=== PATIENT | male | born 1965 | race Caucasian/White ===

== ENCOUNTER 2019-02-18 12:30 | Outpatient (CLI) | payer OTHER, MEDICARE, SELFPAY ==
[2019-02-18 13:44] LABS: Basophils % 0.4 %; Eosinophils % 0.3 %; Hemoglobin 15.7 g/dL (11.7-16.6); Lymphocytes # 1.4 10^3/uL (0.8-4.8); Lymphocytes % 17.7 %; Mean Corpuscular HGB Conc 34.1 g/dL (30.0-36.0); Mean Corpuscular Hemoglobin 34.5 pg (28.0-34.0); Mean Corpuscular Volume 101.1 fL (80-94); Mean Platelet Volume 9.7 fL (7.4-10.4); Monocytes # 0.6 10^3/uL (0.2-0.9); Monocytes % 7.4 %; Neutrophils # 5.7 10^3/uL (1.8-7.7); Neutrophils % 72.4 %; Nucleated Red Blood Cells % 0 %; Platelet Count 413 10^3/cmm (130-400); Red Blood Count 4.55 10^6/uL (4.1-5.3); Red Cell Distribution Width 15.1 % (12.1-15.1); White Blood Count 7.9 10^3/uL (4.0-10.0)
[2019-02-18 13:54] LABS: Alanine Aminotransferase 55 U/L (0-41); Albumin Level 4.7 g/dL (3.5-5.2); Alkaline Phosphatase 79 IU/L (40-130); Anion Gap 16.3 (5-19); Aspartate Amino Transferase 49 U/L (0-40); Blood Urea Nitrogen 20 mg/dL (6-20); Calcium 10.4 mg/Dl (8.6-10.0); Carbon Dioxide 22 mmol/L (22-29); Chloride 105 mmol/L (98-107); Glomerular Filtration Rate 57.5 mL/min (90-130); Glucose 169 mg/dL (74-109); Lactate Dehydrogenase 241 U/L (135-225); Potassium 4.3 mmol/L (3.5-5.1); Sodium 139 mmol/L (136-145); Total Bilirubin 0.6 mg/dL (0.15-1.2); Total Protein 6.7 g/dL (6.6-8.7)
== END 2019-02-18 12:31 | disposition home or self-care (01) ==
LOC: LAB 12:37
PROVIDERS: Visit Provider Internal Medicine Medical Oncology
DX: Z94.84 Stem cells transplant status (principal); R94.5 Abnormal results of liver function studies; D46.9 Myelodysplastic syndrome, unspecified
CPT/HCPCS: 80053; 83615; 85025

== ENCOUNTER 2019-04-12 09:03 | Outpatient (CLI) | payer OTHER, MEDICARE, SELFPAY ==
[2019-04-12 09:28] LABS: Basophils % 0.5 %; Eosinophils # 0.1 10^3/uL (0.0-0.8); Hematocrit 45.8 % (42.0-52.0); Hemoglobin 15.6 g/dL (11.7-16.6); Lymphocytes % 34.8 %; Mean Corpuscular HGB Conc 34.1 g/dL (30.0-36.0); Mean Corpuscular Hemoglobin 35.3 pg (28.0-34.0); Mean Corpuscular Volume 103.6 fL (80-94); Mean Platelet Volume 9.3 fL (7.4-10.4); Monocytes # 1.1 10^3/uL (0.2-0.9); Monocytes % 12.5 %; Neutrophils # 4.3 10^3/uL (1.8-7.7); Nucleated Red Blood Cells % 0 %; Platelet Count 456 10^3/cmm (130-400); Red Blood Count 4.42 10^6/uL (4.1-5.3); Red Cell Distribution Width 14.9 % (12.1-15.1); White Blood Count 8.7 10^3/uL (4.0-10.0)
[2019-04-12 09:48] LABS: Alanine Aminotransferase 56 U/L (0-41); Albumin Level 3.6 g/dL (3.5-5.2); Alkaline Phosphatase 99 IU/L (40-130); Aspartate Amino Transferase 48 U/L (0-40); Blood Urea Nitrogen 19 mg/dL (6-20); Calcium 10.2 mg/dL (8.5-10.5); Carbon Dioxide 25 mmol/L (22-29); Chloride 103 mmol/L (98-107); Globulin 3.4 g/dL (1.3-4.6); Glomerular Filtration Rate 57.5 mL/min (90-130); Glucose 118 mg/dL (65-115); Lactate Dehydrogenase 208 U/L (135-225); Sodium 139 mmol/L (136-145); Total Bilirubin 0.4 mg/dL (0.15-1.2)
== END 2019-04-12 09:04 | disposition home or self-care (01) ==
LOC: LAB 11:28 → ONCMED 11:32
PROVIDERS: PCP Nurse Practitioner Family; Visit Provider Internal Medicine Hematology & Oncology
DX: D46.9 Myelodysplastic syndrome, unspecified (principal)
CPT/HCPCS: 36415; 80053; 80197; 83615; 85025

== ENCOUNTER 2019-06-17 08:17 | Outpatient (CLI) | payer OTHER, MEDICARE, SELFPAY ==
[2019-06-17 09:05] LABS: Basophils # 0.1 10^3/uL (0.0-0.1); Basophils % 0.8 %; Eosinophils # 0.3 10^3/uL (0.0-0.8); Eosinophils % 4.1 %; Hematocrit 46.4 % (42.0-52.0); Hemoglobin 15.7 g/dL (11.7-16.6); Lymphocytes # 2.2 10^3/uL (0.8-4.8); Lymphocytes % 35.5 %; Mean Corpuscular HGB Conc 33.8 g/dL (30.0-36.0); Mean Corpuscular Hemoglobin 34.4 pg (28.0-34.0); Mean Corpuscular Volume 101.5 fL (80-94); Mean Platelet Volume 9.6 fL (7.4-10.4); Monocytes % 15.8 %; Neutrophils # 2.7 10^3/uL (1.8-7.7); Neutrophils % 43.3 %; Nucleated Red Blood Cells % 0 %; Platelet Count 418 10^3/cmm (130-400); Red Blood Count 4.57 10^6/uL (4.1-5.3); Red Cell Distribution Width 15.2 % (12.1-15.1); White Blood Count 6.3 10^3/uL (4.0-10.0)
[2019-06-17 09:25] LABS: Alanine Aminotransferase 56 U/L (0-41); Albumin Level 4.1 g/dL (3.5-5.2); Alkaline Phosphatase 87 IU/L (40-130); Aspartate Amino Transferase 58 U/L (0-40); Blood Urea Nitrogen 20 mg/dL (6-20); Calcium 9.9 mg/dL (8.5-10.5); Carbon Dioxide 22 mmol/L (22-29); Chloride 103 mmol/L (98-107); Globulin 2.9 g/dL (1.3-4.6); Glomerular Filtration Rate 57.5 mL/min (90-130); Glucose 107 mg/dL (65-115); Osmolality Calculated 281 mOsm/kg (285-295); Sodium 137 mmol/L (136-145); Total Bilirubin 0.5 mg/dL (0.15-1.2)
== END 2019-06-17 08:18 | disposition home or self-care (01) ==
PROVIDERS: PCP Nurse Practitioner Family; Visit Provider Internal Medicine Medical Oncology
DX: D46.9 Myelodysplastic syndrome, unspecified (principal); R94.5 Abnormal results of liver function studies; Z94.84 Stem cells transplant status
CPT/HCPCS: 36415; 80053; 85025

== ENCOUNTER 2020-01-18 14:42 | Emergency (ER) | payer OTHER, MEDICARE, SELFPAY ==
[2020-01-18 14:47] VITALS: BP 147/99; PULSE 74; RESP 16; TEMP 36.3; O2SAT 97; BMI 27.8
[2020-01-18 15:30] LABS: Basophils % 0.4 %; Eosinophils % 0.2 %; Hematocrit 50.4 % (42.0-52.0); Hemoglobin 17.6 g/dL (11.7-16.6); Lymphocytes # 1.9 10^3/uL (0.8-4.8); Lymphocytes % 16.8 %; Mean Corpuscular HGB Conc 34.9 g/dL (30.0-36.0); Mean Corpuscular Hemoglobin 34.4 pg (28.0-34.0); Mean Corpuscular Volume 98.6 fL (80-94); Mean Platelet Volume 9.1 fL (7.4-10.4); Monocytes % 8.6 %; Neutrophils # 8.19 10^3/uL (1.8-7.7); Neutrophils % 73.4 %; Nucleated Red Blood Cells % 0 %; Platelet Count 506 10^3/cmm (130-400); Red Blood Count 5.11 10^6/uL (4.1-5.3); Red Cell Distribution Width 14.3 % (12.1-15.1); White Blood Count 11.2 10^3/uL (4.0-10.0)
[2020-01-18 16:07] LABS: Alanine Aminotransferase 50 U/L (0-41); Albumin Level 4.4 g/dL (3.5-5.2); Alkaline Phosphatase 87 IU/L (40-130); Anion Gap 13.4 (5-19); Aspartate Amino Transferase 42 U/L (0-40); Blood Urea Nitrogen 17 mg/dL (6-20); Calcium 10.4 mg/dL (8.5-10.5); Carbon Dioxide 26 mmol/L (22-29); Chloride 103 mmol/L (98-107); Globulin 2.9 g/dL (1.3-4.6); Glomerular Filtration Rate 62.9 mL/min (90-130); Glucose 114 mg/dL (65-115); Lipase 33 U/L (13-60); Osmolality Calculated 288 mOsm/kg (285-295); Potassium 4.4 mmol/L (3.5-5.1); Sodium 138 mmol/L (136-145); Total Bilirubin 0.4 mg/dL (0.15-1.2); Total Protein 7.3 g/dL (6.6-8.7)
[2020-01-18] MEDS: sodium chloride 0.9% 1,000 ML 999 ML IV (16:10)
--- NOTE | 2020-01-18 16:27 | CT_ITS ---
WS: [id number] CT ABDOMEN PELVIS TECHNIQUE: Contrast-enhanced CT of the abdomen and pelvis with coronal and sagittal reformatted image s. CLINICAL INFORMATION: abd pain COMPARISON: None. DLP: 1331.[address] scans at [facility] use at least one of these dose optimization techniques: automat ed exposure control; mA and/or kV adjustment per patient size (includes targeted exams where dose is matched to clinical indication); or iterative reconstruction. FINDINGS: Mild diffuse fatty infiltration the liver. Cholelithiasis. No gallbladder wall thickening or perichol ecystic fluid. Gallbladder is slightly distended. Small calculi at the gallbladder neck and extending into the cystic duct. This can be further evaluated with ultrasound. A few prominent small bowel loops in the right midabdomen. No evidence of high-grade obstruction. Rec ommend correlation for small bowel enteritis. Adrenal glands are normal. Normal renal parenchymal enhancement. No hydronephrosis. A few nonobstruct ing subcentimeter renal parenchymal and calyceal tip calculi. Normal GE junction. Small splenules in the splenectomy bed. Postoperative changes prior splenectomy. Lung bases are well aerated. Sigmoid di verticulosis. No evidence of acute diverticulitis. No periaortic lymphadenopathy. No inguinal lymphad enopathy. Postoperative changes pedicle screw fixation L5-S1. CT/CT abdomen pelvis w con* [id number] IMPRESSION: 1. Fluid distended gallbladder with small gallstones in the gallbladder neck e xtending into the cystic duct. No gallbladder wall thickening or pericholecysti c fluid. This can be further evaluated with ultrasound. 2. A few prominent small bowel loops in the right midabdomen. No evidence of h igh-grade obstruction. Recommend correlation for small bowel enteritis. 3. Mild diffuse fatty infiltration of the liver. 4. No hydronephrosis in either kidney. 5. Prior splenectomy. 6. Sigmoid diverticuli. No evidence of acute diverticulitis 7. Prior postoperative changes pedicle screw fixation L5-S1. Message left for Gildardo Dave MD at 01/18/2020 4:53 PM.
--- NOTE | 2020-01-18 16:33 | ED_ITS ---
HPI - Abdominal Pain General: Chief Complaint: Abdominal Pain Stated Complaint: RLQ ABD PAIN Time Seen by Provider: 01/18/20 16:26 Source: patient Mode of arrival: ambulatory Limitations: no limitations History of Present Illness: HPI narrative: 55-year-old male who states he did have a suprapubic and right lower quadrant pain starting at this morning. He states pain is worsened throughout the day is now an 8 out of 10. 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 He denies any fever. He has had nausea no vomiting. He has had regular bowels. MD elicited complaint: abdominal pain Onset (ago): hour(s) Location: Periumbilical and RLQ Severity: severe Quality: stabbing Associated Symptoms: Denies chills, diarrhea, dysuria, fever(s), nausea and vomiting Review of Systems Const: Denies: fever(s), chills, body aches or change in appetite Eyes: Denies: blurry vision or eye discomfort ENMT: Denies: throat pain or dental pain Card: Denies: chest pain Resp: Denies: dyspnea GI: Reports: abdominal pain; Denies: nausea, vomiting or diarrhea : Denies: dysuria Musc: Denies: neck pain or back pain Skin/Breast: Denies: rash Neuro: Denies: headache(s) Psych: Denies: depression Douglas/Lymph: Denies: easy bruising All/Imm: Denies: urticaria Physical Exam Const: COMMON NORMALS: no acute distress, patient oriented x3 and healthy appearing HENMT: COMMON NORMALS: normocephalic and atraumatic HEAD & SCALP: normocephalic and atraumatic Eye: COMMON NORMALS: Equal, round and reactive pupils present and EOMs intact bilaterally PUPIL: Yes Equal, round and reactive pupils present Neck/C-Spine: COMMON NORMALS: full ROM and supple Chest: COMMONS NORMALS: normal inspection of the chest and normal palpation of entire chest wall Resp: COMMON NORMALS: normal respiratory effort, No retractions, No use of accessory muscles and clear to auscultation bilaterally AUSCULTATION: clear to auscultation bilaterally Cardio: COMMON NORMALS: regular rate, regular rhythm and No murmurs present (Cardio) RATE: regular rate RHYTHM: regular rhythm GI: COMMON NORMALS: Normal to inspection, nondistended, normoactive bowel sounds present, Soft to palpation and no masses PALPATION: Yes Soft to palpation and Yes Tenderness to palpation present (GI) Details: RLQ Extremity: COMMON NORMALS: normal to inspection and full ROM Neuro: COMMON NORMALS: patient oriented x3, moves all extremities and no focal motor deficits Psych: COMMON NORMALS: mental status grossly normal, Normal thought process present and cooperative THOUGHT PROCESS: Normal thought process present Skin: COMMON NORMALS: no rashes or lesions noted and no wounds GENERAL SKIN EXAM: no rashes or lesions noted Course Vital Signs: Vital signs: Vital Signs Temperature 97.3 F L 01/18/20 14:47 Pulse Rate 74 01/18/20 14:47 Respiratory Rate 18 01/18/20 16:48 Blood Pressure 147/99 01/18/20 14:47 Pulse Oximetry 97 01/18/20 14:47 MDM - Abdominal Pain MDM Narrative: Medical decision making narrative: Patient Dennis presents with abdominal pain likely due to gallstones. His pain is much improved he has no tenderness at discharge his common bile duct on ultrasound was not elevated and he has no signs of choledocholithiasis or choledocho cystitis. Patient's white count and bilirubin and liver enzymes here are normal. We will start him on pain meds and he is to follow-up with Dr. Knowles of surgery outpatient. He is return if worsening. He understands and agrees to plan. He has no signs of ischemic bowel. Lab Data: Labs: Lab Results 01/18/20 01/18/20 Range/Units 15:16 15:16 WBC 11.2 H (4.0-10.0) 10^3/ uL RBC 5.11 (4.1-5.3) 10^6/u L Hgb 17.6 H (11.7-16.6) g/dL Hct 50.4 (42.0-52.0) % MCV 98.6 H (80-94) fL MCH 34.4 H (28.0-34.0) pg MCHC 34.9 (30.0-36.0) g/dL RDW 14.3 (12.1-15.1) % Plt Count 506 H (130-400) 10^3/c mm MPV 9.1 (7.4-10.4) fL Neut % (Auto) 73.4 % Lymph % (Auto) 16.8 % Sierra % (Auto) 8.6 % Eos % (Auto) 0.2 % Baso % (Auto) 0.4 % Neut # (Auto) 8.19 H (1.8-7.7) 10^3/u L Lymph # (Auto) 1.9 (0.8-4.8) 10^3/u L Sierra # (Auto) 1.0 H (0.2-0.9) 10^3/u L Eos # (Auto) 0.0 (0.0-0.8) 10^3/u L Baso # (Auto) 0.0 (0.0-0.1) 10^3/u L Nucleated RBC % (a uto) 0 % Nucleated RBCs # 0.0 /100WBC Sodium 138 (136-145) mmol/L Potassium 4.4 (3.5-5.1) mmol/L Chloride 103 (98-107) mmol/L Carbon Dioxide 26 (22-29) mmol/L Anion Gap 13.4 (5-19) BUN 17 (6-20) mg/dL Creatinine 1.2 (0.7-1.2) mg/dL GFR Calculation 62.9 L (90-130) mL/min Glucose 114 (65-115) mg/dL Calculated Osmolal ity 288 (285-295) mOsm/k g Calcium 10.4 (8.5-10.5) mg/dL Total Bilirubin 0.4 (0.15-1.2) mg/dL AST 42 H (0-40) U/L ALT 50 H (0-41) U/L Alkaline Phosphata se 87 (40-130) IU/L Total Protein 7.3 (6.6-8.7) g/dL Albumin 4.4 (3.5-5.2) g/dL Globulin 2.9 (1.3-4.6) g/dL Lipase 33 (13-60) U/L Imaging Data ^: CT Abd/Pel: Radiologist's impression: [facility] [address] [place] [address] CT Scan Report Signed Patient: Dennis Singh Unit #: [id number] : 1965 626 Age/Sex: 55 / M ADM Date: 01/18/20 Loc: ER Room/Bed: Attending Dr: Ordering Provider/Ordering MD: Gildardo Dave MD Date of Service: 01/18/20 Procedure(s): CT abdomen pelvis w con* [id number] Accession Number(s): [id number] Report Number: [id number] WS: [id number] CT ABDOMEN PELVIS TECHNIQUE: Contrast-enhanced CT of the abdomen and pelvis with coronal and sagittal reformatted images. CLINICAL INFORMATION: abd pain COMPARISON: None. DLP: 1331.[address] scans at [facility] use at least one of these dose optimization techniques: automated exposure control; mA and/or kV adjustment per patient size (includes targeted exams where dose is matched to clinical indication); or iterative reconstruction. FINDINGS: Mild diffuse fatty infiltration the liver. Cholelithiasis. No gallbladder wall thickening or pericholecystic fluid. Gallbladder is slightly distended. Small calculi at the gallbladder neck and extending into the cystic duct. This can be further evaluated with ultrasound. A few prominent small bowel loops in the right midabdomen. No evidence of high- grade obstruction. Recommend correlation for small bowel enteritis. Adrenal glands are normal. Normal renal parenchymal enhancement. No hydronephrosis. A few nonobstructing subcentimeter renal parenchymal and calyceal tip calculi. Normal GE junction. Small splenules in the splenectomy bed. Postoperative changes prior splenectomy. Lung bases are well aerated. Sigmoid diverticulosis. No evidence of acute diverticulitis. No periaortic lymphadenopathy. No inguinal lymphadenopathy. Postoperative changes pedicle screw fixation L5-S1. CT/CT abdomen pelvis w con* [id number] IMPRESSION: 1. Fluid distended gallbladder with small gallstones in the gallbladder neck extending into the cystic duct. No gallbladder wall thickening or pericholecystic fluid. This can be further evaluated with ultrasound. 2. A few prominent small bowel loops in the right midabdomen. No evidence of high-grade obstruction. Recommend correlation for small bowel enteritis. 3. Mild diffuse fatty infiltration of the liver. 4. No hydronephrosis in either kidney. 5. Prior splenectomy. 6. Sigmoid diverticuli. No evidence of acute diverticulitis 7. Prior postoperative changes pedicle screw fixation L5-S1. Discharge Plan Discharge Patient Disposition: Home Clinical Impression: Gallstones Abdominal pain Qualifiers: Abdominal location: right upper quadrant Qualified Code(s): R10.11 - Right upper quadrant pain Condition: Stable Prescriptions: [place] 5-325 mg tablet 1 tab PO Q6H PRN (Reason: pain) Qty: 14 RF: 0 ondansetron 4 mg tablet,disintegrating 4 mg PO Q6H PRN (Reason: nausea and vomiting) Qty: 14 RF: 0 Augmentin 875-125 mg tablet 1 tab PO BID Qty: 14 RF: 0 No Action acyclovir 400 mg tablet 400 mg PO TID RF: 0 sulfamethoxazole-trimethoprim 800-160 mg tablet See Rx Instructions .ROUTE .COMPLEX RF: 0 pantoprazole 40 mg tablet,delayed release (DR/EC) 40 mg PO DAILY RF: 0 ursodiol 250 mg tablet 250 mg PO BID RF: 0 Claritin 10 mg Tablet 10 mg PO DAILY RF: 0 tacrolimus 0.5 mg capsule 0.5 mg PO DAILY RF: 0 Vitamin D3 25 mcg (1,000 unit) Capsule 25 mcg PO BID RF: 0 Fish Oil Capsule 1 cap PO BID RF: 0 Calcium Citrate + D 315 mg-5 mcg (200 unit) Tablet 1 tab PO BID RF: 0 Jakafi 10 mg tablet 10 mg PO BID RF: 0 Discharge Orders: Discharge ED (Routine); Ordered 01/18/20 Ordered By: Gildardo Dave Referrals: Stanley Knowles MD [Physician] - 1-3 days Gonzalez,GAIL Felton [Primary Care Provider] - Discharge Diet: Advance as tolerated Discharge Activity: Resume usual activity Patient Instructions: Biliary Colic (ED), Abdominal Pain (ED) Coding Level of Care Code ED Latex Spooler for Chg Fwd Exam Comprehensive
[2020-01-18] MEDS: iohexol 300 mg/mL 100 mL Btl IV (16:41)
[2020-01-18 16:48] VITALS: RESP 18
[2020-01-18] MEDS: morphine 4 mg/mL SDV 1 mL IVP (16:48)
[2020-01-18] MEDS: ondansetron 2 mg/ML SDV 2 mL 4 MG IVP (16:49)
--- NOTE | 2020-01-18 17:01 | USR_ITS ---
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 This was sudden on set of severe stabbing pain. Npo six hours, per patient. ; Additional info: See CT TECHNIQUE: Imaging protocol: US abdomen. Real time ultrasound with image documentation. Limited exam focused on the right upper quadrant. COMPARISON: CT abdomen pelvis w con* [id number] 01/18/2020 4:30 PM FINDINGS: Liver: The liver is of normal echogenicity measuring 15.1 cm. Gallbladder: Mildly distended gallbladder measuring 11.7 cm in length. The small calcified stones in the gallbladder neck on the CT scan, are not visible on the ultrasound. The gallbladder wall thickness measures 5.0 mm. Common bile duct: The common bile duct measures 5.4 mm. Pancreas: The pancreas is obscured. Right kidney: Normal. No mass. No hydronephrosis. US/US gall bladder [id number] IMPRESSION: 1. Mild gallbladder wall thickening with calcified gallstones in the gallbladder neck on the CT study (not visible on this study). This is suspicious for acute cholecystitis.
[2020-01-18] MEDS: HYDROcodone-acetaminophen 7.5-325 mg Tablet 1 TAB PO (17:46)
[2020-01-18 17:56] VITALS: BP 142/96; PULSE 71; RESP 17; O2SAT 98
--- NOTE | 2020-01-19 09:57 | DCPLANNER ---
writing manager had message to schedule a follow up appointment for patient with Dr. Knowles for general surgery. Patient has [facility] insurance, Dr. Davila office does not accept VA insurance at this time. writing manager will refer patient patient to [facility] General Surgery either Dr. Angelo to Dr. Dalton. Patient has [facility] insurance, so corrections caseworker will email the [facility] with [facility] to have a consult placed. writing manager emailed [facility] with the referral to their clinic, patients information will be printed and reviewed, clinic will call patient with appointment information.
--- NOTE | 2020-01-26 12:45 | DCPLANNER ---
Patient has a follow up appointment scheduled for Thursday, January 30, 2020 at 10:[address] Angelo. Clinic will call patient with appointment information.
--- NOTE | 2020-02-03 08:17 | DCPLANNER ---
Patient had a follow up appointment scheduled for 01.30.20 with general surgery - patient did attend appointment.
== END 2020-01-18 17:57 | disposition home or self-care (01) ==
PROVIDERS: Emergency Provider Emergency Medicine; PCP Nurse Practitioner Family
DX: K80.80 Other cholelithiasis without obstruction (principal)
CPT/HCPCS: 12345; 74177; 76705; 80053; 83690; 85025; 96361; 96374; 96375; 99282; 99283; J2270; J2405; J7030; Q9967

== ENCOUNTER → 2020-01-31 10:23 | Outpatient (BNVA) | payer MEDICARE, SELFPAY | PROVIDERS: PCP Nurse Practitioner Family; Visit Provider Surgery | DX: K80.20 Calculus of gallbladder without cholecystitis without obstruction (principal) | CPT/HCPCS: 87635 ==

== ENCOUNTER 2020-02-06 05:57 | Day surgery (SDC) | payer OTHER, MEDICARE, SELFPAY ==
[2020-02-03 09:07] VITALS: BMI 27.8
[2020-02-06] VITALS (8 sets, daily range): BP systolic 107–129; BP diastolic 68–97; PULSE 52–86; RESP 14–20; TEMP 36.4–36.7; O2SAT 93–98
[2020-02-06] MEDS: sodium chloride 0.9% 1,000 ML 30 ML IV (06:25)
--- NOTE | 2020-02-06 06:43 | ANES.PREANE2 ---
Pre-Anesthetic Assessment Pre-Anesthetic Assessment: Height/Weight: Height 1.8 m Weight 90.718 kg Temp Pulse Resp BP Pulse Ox 97.9 F 86 18 129/97 93 02/06/20 06:14 02/06/20 06:14 02/06/20 06:14 02/06/20 06:14 02/06/20 06:14 Preop Diagnosis: Cholelithiasis Proposed Procedure: Operation Date: 02/06/20 07:40 Proposed Procedures p Laparoscopic poss Open Cholecystectomy 31863 K80.20(Not Applicable) - Jean Carlos Angelo MD Was Beta Zully taken within 24 hours: N/A Last intake: Intake Last Liquid Date 02/05/20 Last Liquid Time 19:30 Last Solid Date 02/05/20 Last Solid Time 19:30 Social: Social History: Tobacco and No alcohol Exam: Pre-Anes Outpt Exam: alert, oriented x 3, clear to auscultation bilaterally and regular rate & rhythm Airway: Submandibular: WNL Cervical ROM: WNL MP: 2 Dentition: Full Additional comments: Poor dentition Pulmonary: Pulmonary: COPD CV/HEM: CV/HEM: None reported : : None reported Hepatic: Hepatic: None reported GI: GI: GERD Metabolic: Metabolic: None reported Musc/skel: Musc/skel: None reported Neuropsych: Neuropsych: None reported Anesthetic Plan: ASA status: 3 Anesthesia: General Risk of > 500 ml blood loss (7ml/kg in children): No Meds/Allergies Current Medications: Current Medications Generic Name Dose Route Start Last Admin Trade Name Freq PRN Reason Stop Dose Admin Sodium Chloride 1,000 mls @ 30 ml s/hr 02/06/20 06:15 02/06/20 06:25 Sodium Chloride 0.9% IV 02/07/20 06:14 30 mls/hr .Q24H RAGHU Administration PFSH Anesthesia PFSH: Medical History Gallstones GERD (gastroesophageal reflux disease) Herpes simplex 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 stem cell transplant Surgical History H/O circumcision H/O colonoscopy 2016 H/O esophagogastroduodenoscopy 2017 H/O splenectomy age 2 days old H/O stem cell transplant History of back surgery x 2 Family History Other Cancer Diabetes Hypertension Denies family history of CAD (coronary artery disease) Anesthesia complication Bleeding disorder Social History Smoking and tobacco status: never smoked Alcohol intake: current Alcohol intake frequency: holidays/special occasions only Household members: significant other Marital status: Single Current occupational status: disabled History of recent travel: No Data Anesthesia Cardiac Studies: No Data to Display
--- NOTE | 2020-02-06 06:57 | W.PM.OPSUD ---
Surgery/Procedure H&P Update DATE OF PROCEDURE: February 06, 2020 DATE H&P PERFORMED: 01/30/20 H&P UPDATE INFORMATION: I have reviewed H&P completed within last 30 days, I have examined patient prior to procedure and No changes to prior documentation PREOP DIAGNOSIS: Cholelithiasis PLANNED PROCEDURE: Operation Date: 02/06/20 07:40 Proposed Procedures p Laparoscopic poss Open Cholecystectomy 30349 K80.20(Not Applicable) - Jean Carlos Angelo MD
[2020-02-06] MEDS: HYDROcodone-acetaminophen 5-325 mg Tablet 1 TAB PO (09:48)
--- NOTE | 2020-02-06 12:05 | ANE.PACU2 ---
Inpatient post-anesthesia follow up: Airway intact: Yes Vital signs: Temperature 98 F Pulse Rate 57 Respiratory Rate 16 Blood Pressure 117/68 Pulse Oximetry 94 Oxygen Delivery Me thod Room Air Oxygen Flow Rate 6 Fraction of Inspir ed Oxygen Hydration adequate: Yes Nausea and vomiting: No Pain level: 1 Mental status: Baseline
--- NOTE | 2020-02-06 12:46 | P.OP_ITS ---
Operative Report Date of procedure: February 06, 2020 Pre-op Diagnosis: Cholelithiasis Post-op diagnosis: same Procedure Done: Laparoscopic cholecystectomy Specimens removed/disposition: Gallbladder Surgeon: Jean Carlos Angelo Anesthesia: General Condition: stable Disposition: PACU Procedure: The patient was taken to the operating room and was intubated under general anesthesia. After the antibiotic had been administered, the abdomen was prepped and draped in a sterile manner. Using a #15 blade, a 1 centimeter incision was made in the left upper quadrant in the midclavicular line and using an open Gilda technique the peritoneal cavity was entered. A 10 millimeter port was placed and 15 millimeters of pneumoperitoneum was created. A 10 millimeter, 30 degrees scope was then introduced. Three 5 millimeter ports were placed in the epigastric, and the anterior axillary line two fingerbreadths below the costal margin on the right side under the direct visualization. There was small bowel loops adherent to the prior laparotomy scar in the midline which was divided using electrocautery and 5 mm port was placed in the umbilicus under direct visualization. The gallbladder was distended and decompressed using an aspiration needle. Ratcheted forceps were introduced into the lateral most port and was used to retract the fundus of the gallbladder cephalad and using forceps the infundibulum of the gallbladder was retracted laterally. Using L-hook cautery the peritoneum overlying the Calot's triangle was opened medially and laterally until the cystic duct and the cystic artery were skeletonized. Dissection was carried along the body of the gallbladder and after ensuring critical view of safety, 4 clips applied on the cystic duct and 3 clips applied on the cystic artery and cut leaving, 3 clips on the remaining portion of the d uct and 2 clips on the remaining portion of the artery. The rest of the gallbladder was dissected off the liver using L-hook cautery. There was no bleeding or bile leaking noted from the gallbladder fossa and the clips appeared to be in place. An EndoCatch bag was introduced to remove the gallbladder. All the ports were removed under direct visualization and there was no bleeding noted from the port sites. The fascia of the 1 cm port site was closed using rasqon-[id number] 0 Vicryl sutures and the subcutaneous tissue was approximated using 3-0 Vicryl sutures. The skin at all four ports were closed using 4-0 Monocryl and Dermabond. A total of 10 millimeters of 0.5% Marcaine was infiltrated around the port sites. The patient was stable throughout the procedure.
== END 2020-02-06 10:40 | disposition home or self-care (01) ==
PROVIDERS: PCP Nurse Practitioner Family; Visit Provider Surgery
PROC: 0FT44ZZ Resection of Gallbladder, Percutaneous Endoscopic Approach (ICD-10-PCS; CPT 47562; principal; 2020-02-06 07:40)
DX: K80.10 Calculus of gallbladder with chronic cholecystitis without obstruction (principal); J44.9 Chronic obstructive pulmonary disease, unspecified; K21.9 Gastro-esophageal reflux disease without esophagitis
CPT/HCPCS: 47562; 12345; 88304; J0131; J0690; J1100; J2370; J2405; J2704; J2710; J3010; J3490; J7030

== ENCOUNTER 2020-08-06 08:38 | Outpatient (CLI) | payer OTHER, MEDICARE, SELFPAY ==
[2020-08-06] MEDS: sodium chloride 0.9% 250 ML IV (10:41)
[2020-08-06 11:36] LABS: Basophils # 0.1 10^3/uL (0.0-0.1); Basophils % 0.7 %; Eosinophils % 0.2 %; Hematocrit 52.6 % (42.0-52.0); Hemoglobin 18.5 g/dL (11.7-16.6); Lymphocytes # 2.8 10^3/uL (0.8-4.8); Lymphocytes % 25.7 %; Mean Corpuscular HGB Conc 35.2 g/dL (30.0-36.0); Mean Corpuscular Hemoglobin 34.1 pg (28.0-34.0); Mean Corpuscular Volume 96.9 fL (80-94); Monocytes # 0.6 10^3/uL (0.2-0.9); Monocytes % 5.6 %; Neutrophils # 7.22 10^3/uL (1.8-7.7); Neutrophils % 67.1 %; Nucleated Red Blood Cells % 0 %; Platelet Count 127 10^3/cmm (130-400); Red Blood Count 5.43 10^6/uL (4.1-5.3); Red Cell Distribution Width 15.7 % (12.1-15.1); White Blood Count 10.8 10^3/uL (4.0-10.0)
[2020-08-06 12:25] LABS: Slide Review Slide Review Perform
--- NOTE | 2020-08-07 16:52 | ONC FU_ITS ---
Dr. Corral follow up note Patient: Dennis Singh Unit #: [id number]: 1965 Dicatated By: Ray Corral M.D.Date of Visit:Aug 06, 2020 Onc Med Follow-up/Prog Note History of Present Illness: Mr. Dennis Singh is a 55-year-old gentleman who was admitted to the hospital on 11/17/16 with episode of syncopal attacks. He was found to have severe anemia with hemoglobin of 4.9 and hematocrit of 14.3, and his white blood count was also low at 2.5 with a neutrophil of 24%, bands at 12%, and absolute Neutrophil Count about 900. Platelet count was 85,000. He was given 4 units of packed RBC during hospitalization and Was diagnosed with myelodysplastic syndrome with germline DDX41 mutation, treated with azacitidine on 03/31/2017 and 05/06/2017. 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 And on prophylactic antimicrobial with acyclovir, Bactrim and now on AmBisome until transaminases improves then it will be switched to oral antifungal patient has return appointment to BMT . Clinic at [facility] amBisome was discontinued on 08/25/2018 Came for follow-up, complaining of frontal headaches, as per patient he went to see his PMD last week, he was prescribed Levaquin for possible sinusitis and his lab work-up done there at [facility] showed hematocrit 57.3, hemoglobin 19.7, thus he was recommended phlebotomy. Denies any blurred vision double vision, denies any sore throat but continues to have low-grade fever, denies any hemoptysis or hematemesis, denies any blurred vision double vision, denies any peripheral numbness, denies any shortness of breath. Denies any night sweats denies any dysuria hematuria, denies any jaundice, As per patient last time he went to BMT clinic at [facility] in April 2020 and next visit is scheduled for October 2020. Medications: Acyclovir 1 (400 mg) Tablet Oral t.i.d., Aspirin (325 mg) Tablet Oral daily, Bactrim 1 Tablet Oral b.i.d., Calcium 1 Capsule (of 600 mg) Oral b.i.d., Cetirizine HCl 1 Tablet (of 10 mg) Oral daily, Cholecalciferol 1 (2000 Units) Tablet Oral daily, Jakafi 1 Tablet (of 10 mg) Oral b.i.d., Mucinex 1 Tablet (of 600 mg) Tablet SR 12 HR Oral t.i.d., Noxafil 3 Tablet (of 100 mg) Tablet, enteric coated Oral daily, predniSONE 1 (10 mg) Tablet Oral daily, Tacrolimus 1 Tablet (of 0.5 mg) Capsule Oral daily, Ursodiol 1 Tablet Oral b.i.d. Allergies: Latex Review of Systems: Review of Systems is not available for this patient. Vital Signs: Performed on Aug 06, 2020 11:10 Height - 61.50 in Weight - 223.8 lbs (HIGH) BSA - 1.99 sq.m BMI - 41.60 (HIGH) Temperature - 98.8 F Pulse - 113 /min (HIGH) Respiration - 18 /min BP - 111/74 mm(hg) O2 Sat - 93 % (LOW) Pain - 9 Fatigue - 0 Performance Status: 1 - No physically strenuous activity, but ambulatory and able to carry out light or sedentary work (e.g. office work, light house work). (ECOG) Physical Examination: ENMT - No mouth sores, no thrush, no jaundice, No maxillary sinus tenderness, Respiratory - Lungs are clear to auscultation, Cardiovascular - Regular rate and rhythm of heart, Abdomen - Soft, bowel sounds present, Extremities - No visible edema. Lab/Imaging: Test performed on Aug 02, 2020 11:02 WBC 6.1 10^3/uL RBC 5.59 10^6/uL HGB 19.7 g/dL HCT 57.3 % MCV 102.5 fl MCH 35.2 pg MCHC 34.4 g/dL RDW 16.6 % Platelet Count 291 10^3/uL MPV 10.2 fl Neutrophils 4.8 10^3/uL Lymphocytes 0.7 10^3/uL Monocytes 0.5 10^3/uL Eosinophils 0.0 10^3/uL Basophils 0.1 10^3/uL Neutrophil % 28 % Lymphocyte % 12 % Monocyte % 8 % Eosinophil % 0 % Basophils % 1 % Impression: Pancytopenia due to MDS with IPSS score 0.5 ( no excess blast , no cytogenetic abnormality) intermediate 1 risk with germline DDX41 mutation s/p azacitidine on 03/31/2017 and 05/06/2017. 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 Donor and recipient both A+, CMV negative Post transplant period complicated by acute lwxee-lioseq-sicl disease, stage III, grade IIIc, diagnosed on 06/26/2017 when his bilirubin was 6.8 And chronic skin rash. Now on post transplant treatment as per protocol., On acyclovir, Bactrim, Prograf, Jakafi, History of elevated ferritin/iron overload 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 involving subcutaneous tissue/fascia in the flanks copper level 107, Testosterone level 508.94 Polycythemia diagnosed on August 02, 2020, Started on phlebotomy with 250 cc/replacement with 250 cc normal saline on August 06, 2020 Plan: Discussed with patient regarding his labs from [facility] done on August 02, 2020 which shows white blood count 6.1 hemoglobin 19.7 hematocrit 57.3 platelets 291,000 MCV 102.5, clinically, patient doing reasonably well but complaining of persistent frontal headache which could be due to sinusitis as he is also spiking low-grade fever, patient is on Bactrim, acyclovir, Prograf as a part of post transplant management and not responding to Levaquin which was started recently by his PMD, at this point we will consider him starting on Augmentin and in the meantime because of generalized weakness and fatigue and severe frontal headache, will consider phlebotomy with 250 cc and replacement with 250 cc normal saline. Also obtain CBC today as a baseline. Patient was advised in case he starts spiking fever or develop any generalized weakness and fatigue he need to call us or go to hospital for evaluation. As far as newly diagnosed polycythemia is concerned, etiology is unclear could be post transplant erythrocytosis or part of other myeloproliferative disorder, at this point we will consider erythropoietin level or BX mass, JAK2 mutation, BCR ABL 1 testing, CLR/MPL testing, patient is already on aspirin, he was also advised to maintain hydration., Case was discussed with his physician at BMT clinic at [facility]. Signed By: Ray Corral M.D. <<Signature on File>>
== END 2020-08-06 08:39 | disposition home or self-care (01) ==
PROVIDERS: PCP Nurse Practitioner Family; Visit Provider Internal Medicine Hematology & Oncology
DX: D61.818 Other pancytopenia (principal); L27.1 Localized skin eruption due to drugs and medicaments taken internally; D50.9 Iron deficiency anemia, unspecified; D75.1 Secondary polycythemia; Z79.899 Other long term (current) drug therapy
CPT/HCPCS: 36415; 85025; 99195; 99214; J7050

== ENCOUNTER 2020-08-06 18:38 | Inpatient (IN) | payer OTHER, MEDICARE, SELFPAY ==
[2020-08-06] VITALS (12 sets, daily range): BP systolic 102–111; BP diastolic 62–71; PULSE 98–127; RESP 17–31; TEMP 37.7–37.8; O2SAT 89–97; BMI 31.1
--- NOTE | 2020-08-06 18:50 | XRR_ITS ---
PROCEDURE INFORMATION: Exam: XR Chest Exam date and time: 08/06/2020 6:50 PM Age: 55 years old Clinical indication: Other: Head ache; Additional info: Fever TECHNIQUE: Imaging protocol: XR of the chest. Views: 1 view. Total images: 1 COMPARISON: CR Chest 1 [place] [id number] 05/17/2017 2:50 PM FINDINGS: Lungs: No visible active interstitial or alveolar airspace disease. Pleural spaces: Unremarkable. No pleural effusion. No pneumothorax. Heart/Mediastinum: Unremarkable. No cardiomegaly. Bones/joints: Unremarkable. XR/XR chest 1V portable [id number] IMPRESSION: Nonacute.
--- NOTE | 2020-08-06 18:51 | ECG_ITS ---
[facility] Test Date: 2020-08-06 Pat Name: Dennis Singh Department: Room: Gender: Male Lifter/Driver: : 1965 Requested By: Gildardo Dave Order Number: [id number] Reading MD: JACEY COSME Measurements Intervals Snyder Rate: 120 P: 51 KS: 179 QRS: 21 QRSD: 95 T: 10 QT: 319 QTc: 452 Interpretive Statements SINUS TACHYCARDIA NONSPECIFIC T-WAVE ABNORMALITY ABNORMAL RHYTHM ECG Compared to ECG 11/17/2016 10:12:27 Sinus rhythm no longer present T-wave abnormality still present Electronically Signed On 08-07-2020 18:40:32 CDT by JACEY COSME [email or web address] [email or web address], [email or web address] [id number]
--- NOTE | 2020-08-06 18:52 | ED_ITS ---
HPI - Weakness General: Chief complaint: Weakness Stated complaint: HEADACHE, GENERAL WEAKNESS Time Seen by Provider: 08/06/20 18:46 Source: patient and EMS Mode of arrival: EMS Limitations: no limitations History of Present Illness: HPI Narrative: 55-year-old male states over the last 6 days has been having generalized fatigue along with fevers and just not feeling well with weakness. He states he had a mild headache to he rates a 5 out of 10. Denies any neck pain. He said he had a mild cough. Denies any abdominal pain. Denies sore throat. He states that he has been having high hemoglobins and had to have blood removed yesterday due to this. He has a history of cancer that is in remission. Denies any vomiting diarrhea. He states he has had some falls recently due to his weakness. Denies any head injury. Associated symptoms: Reports chills and fever(s); Denies chest pain, dysuria, easy bruising, headache(s), nausea or vomiting Review of Systems Const: Reports: fever(s) and chills Eyes: Denies: blurry vision or eye discomfort ENMT: Denies: throat pain or dental pain Card: Denies: chest pain Resp: Denies: dyspnea GI: Denies: abdominal pain, nausea, vomiting or diarrhea : Denies: dysuria Musc: Denies: neck pain or back pain Skin/Breast: Denies: rash Neuro: Denies: headache(s) Psych: Denies: depression Douglas/Lymph: Denies: easy bruising All/Imm: Denies: urticaria PFSH ED PFSH: Medical History (Updated 08/06/20 @ 22:48 by Gildardo Dave MD) Gallstones GERD (gastroesophageal reflux disease) Herpes simplex 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 stem cell transplant Surgical History (Updated 02/24/20 @ 15:34 by Jean Carlos Angelo MD) H/O circumcision H/O colonoscopy 2017 H/O esophagogastroduodenoscopy 2017 H/O splenectomy age 2 days old H/O stem cell transplant History of back surgery x 2 Hx laparoscopic cholecystectomy (02/06/20) Family History Other Cancer Diabetes Hypertension Denies family history of CAD (coronary artery disease) Anesthesia complication Bleeding disorder Social History Smoking and tobacco status: never smoked Alcohol intake: current Alcohol intake frequency: holidays/special occasions only Household members: significant other Marital status: Single Current occupational status: disabled History of recent travel: No Physical Exam Const: COMMON NORMALS: no acute distress, patient oriented x3 and healthy appearing HENMT: COMMON NORMALS: normocephalic and atraumatic HEAD & SCALP: normocephalic and atraumatic Eye: COMMON NORMALS: Equal, round and reactive pupils present and EOMs intact bilaterally PUPIL: Yes Equal, round and reactive pupils present Neck/C-Spine: COMMON NORMALS: full ROM, supple and no meningeal signs Chest: COMMONS NORMALS: normal inspection of the chest and normal palpation of entire chest wall Resp: COMMON NORMALS: normal respiratory effort, No retractions, No use of acc essory muscles and clear to auscultation bilaterally AUSCULTATION: clear to auscultation bilaterally Cardio: COMMON NORMALS: regular rhythm and No murmurs present (Cardio) RATE: tachycardic RHYTHM: regular rhythm GI: COMMON NORMALS: Normal to inspection, nondistended, normoactive bowel sounds present, Soft to palpation, non-tender and no masses PALPATION: Yes Soft to palpation Extremity: COMMON NORMALS: normal to inspection and full ROM Neuro: COMMON NORMALS: patient oriented x3, moves all extremities and no focal motor deficits MENINGEAL SIGNS: Yes no meningeal signs Psych: COMMON NORMALS: mental status grossly normal, Normal thought process present and cooperative THOUGHT PROCESS: Normal thought process present Skin: COMMON NORMALS: no rashes or lesions noted and no wounds GENERAL SKIN EXAM: no rashes or lesions noted Course Vital Signs: Vital signs: Vital Signs Temperature 99.9 F H 08/06/20 18:44 Pulse Rate 109 H 08/06/20 22:12 Respiratory Rate 17 08/06/20 22:12 Blood Pressure 102/62 08/06/20 22:12 Pulse Oximetry 96 08/06/20 22:12 MDM - Weakness MDM Narrative: Medical decision making narrative: Patient presents here with fever along with generalized weakness and some dehydration. He feels improved after IV fluids. Patient chest x-ray here is normal and so was his Covid test. He still having some weakness and will admit for observation. He has been s table while here. Lab Data: Labs: Lab Results 08/06/20 08/06/20 08/06/20 Range/Units 19:25 19:25 19:25 WBC 12.2 H (4.0-10.0) 10^3/ uL RBC 5.09 (4.1-5.3) 10^6/u L Hgb 17.7 H (11.7-16.6) g/dL Hct 49.4 (42.0-52.0) % MCV 97.1 H (80-94) fL MCH 34.8 H (28.0-34.0) pg MCHC 35.8 (30.0-36.0) g/dL RDW 15.5 H (12.1-15.1) % Plt Count 124 L (130-400) 10^3/c mm MPV 11.2 H (7.4-10.4) fL Neut % (Auto) 77.8 % Lymph % (Auto) 16.3 % [place] % (Auto) 4.4 % Eos % (Auto) 0.2 % Baso % (Auto) 0.6 % Neut # (Auto) 9.45 H (1.8-7.7) 10^3/u L Lymph # (Auto) 2.0 (0.8-4.8) 10^3/u L [place] # (Auto) 0.5 (0.2-0.9) 10^3/u L Eos # (Auto) 0.0 (0.0-0.8) 10^3/u L Baso # (Auto) 0.1 (0.0-0.1) 10^3/u L Nucleated RBC % (a uto) 0 % Nucleated RBCs # 0.0 /100WBC Sodium 129 L (136-145) mmol/L Potassium 3.8 (3.5-5.1) mmol/L Chloride 95 L (98-107) mmol/L Carbon Dioxide 24 (22-29) mmol/L Anion Gap 13.8 (5-19) BUN 22 H (6-20) mg/dL Creatinine 1.3 H (0.7-1.2) mg/dL GFR Calculation 57.3 L (90-130) mL/min Glucose 123 H (65-115) mg/dL Calculated Osmolal ity 273 L (285-295) mOsm/k g Lactate 2.1 (0.5-2.2) mmol/L Calcium 8.2 L (8.5-10.5) mg/dL Total Bilirubin 1.1 (0.15-1.2) mg/dL AST 146 H (0-40) U/L ALT 124 H (0-41) U/L Alkaline Phosphata se 116 (40-130) IU/L Total Protein 5.5 L (6.6-8.7) g/dL Albumin 3.0 L (3.5-5.2) g/dL Globulin 2.5 (1.3-4.6) g/dL Urine Color (Yellow) Urine Appearance (CLEAR) Urine pH (5-7) Ur Specific Gravit y (1.005-1.030) Urine Protein (Negative) Urine Glucose (UA) (Normal) Urine Ketones (Negative) Urine Blood (Negative) Urine Nitrate (Negative) Urine Bilirubin (Negative) Urine Urobilinogen (Negative) mg/dL Ur Leukocyte Vidhi ase (Negative) Urine RBC (0-2) /hpf Urine WBC (0-5) /hpf Ur Squamous Epith Cells (0-5) /hpf Amorphous Sediment Urine Bacteria (NONE) /hpf Urine Mucus /hpf SARS-CoV-2 Ag (Rap id) (Negative) 08/06/20 08/06/20 Range/Units 19:38 20:26 WBC (4.0-10.0) 10^3/ uL RBC (4.1-5.3) 10^6/u L Hgb (11.7-16.6) g/dL Hct (42.0-52.0) % MCV (80-94) fL MCH (28.0-34.0) pg MCHC (30.0-36.0) g/dL RDW (12.1-15.1) % Plt Count (130-400) 10^3/c mm MPV (7.4-10.4) fL Neut % (Auto) % Lymph % (Auto) % [place] % (Auto) % Eos % (Auto) % Baso % (Auto) % Neut # (Auto) (1.8-7.7) 10^3/u L Lymph # (Auto) (0.8-4.8) 10^3/u L [place] # (Auto) (0.2-0.9) 10^3/u L Eos # (Auto) (0.0-0.8) 10^3/u L Baso # (Auto) (0.0-0.1) 10^3/u L Nucleated RBC % (a uto) % Nucleated RBCs # /100WBC Sodium (136-145) mmol/L Potassium (3.5-5.1) mmol/L Chloride (98-107) mmol/L Carbon Dioxide (22-29) mmol/L Anion Gap (5-19) BUN (6-20) mg/dL Creatinine (0.7-1.2) mg/dL GFR Calculation (90-130) mL/min Glucose (65-115) mg/dL Calculated Osmolal ity (285-295) mOsm/k g Lactate (0.5-2.2) mmol/L Calcium (8.5-10.5) mg/dL Total Bilirubin (0.15-1.2) mg/dL AST (0-40) U/L ALT (0-41) U/L Alkaline Phosphata se (40-130) IU/L Total Protein (6.6-8.7) g/dL Albumin (3.5-5.2) g/dL Globulin (1.3-4.6) g/dL Urine Color Yellow (Yellow) Urine Appearance Clear (CLEAR) Urine pH 5 (5-7) Ur Specific Gravit y 1.015 (1.005-1.030) Urine Protein 1+ H (Negative) Urine Glucose (UA) Norm (Normal) Urine Ketones Negative (Negative) Urine Blood 3+ H (Negative) Urine Nitrate Negative (Negative) Urine Bilirubin 1+ H (Negative) Urine Urobilinogen 4 H (Negative) mg/dL Ur Leukocyte Vidhi ase Trace H (Negative) Urine RBC 0-4 H (0-2) /hpf Urine WBC 0-4 H (0-5) /hpf Ur Squamous Epith Cells 0-4 H (0-5) /hpf Amorphous Sediment Not Reportable Urine Bacteria 1+ H (NONE) /hpf Urine Mucus 1+ /hpf SARS-CoV-2 Ag (Rap id) Negative (Negative) Imaging Data^: CT Head: Radiologist's impression: [employer] [address] [address] Scan Report Signed Patient: Dennis Singh Unit #: [id number] : 1965 Age/Sex: 55 / M ADM Date: 08/06/20 Loc: ER Room/Bed: Attending Dr: Ordering Provider/Ordering MD: Gildardo Dave MD Date of Service: 08/06/20 Procedure(s): CT head wo con* [id number] Accession Number(s): [id number] Report Number: [id number] PROCEDURE INFORMATION: Exam: CT Head Without Contrast Exam date and time: 08/06/2020 6:50 PM Age: 55 years old Clinical indication: Pain; Dizziness and weakness, extremity; Bilateral; Headache; Additional info: Cuadra/weakness/dizzy/lethargy x 7 days TECHNIQUE: Imaging protocol: Computed tomography of the head without contrast. Total images: 207 Radiation optimization: All CT scans at this facility use at least one of these dose optimization techniques: automated exposure control; mA and/or kV adjustment per patient size (includes targeted exams where dose is matched to clinical indication); or iterative reconstruction. COMPARISON: CT head wo con* [id number] 11/17/2016 11:30 AM RADIATION DOSE METRICS: Total DLP (mGy-cm): 881.57 FINDINGS: Brain: No evidence of active or acute intracranial pathologic process, hemorrhage, or trauma. No visible evidence of diffuse cerebral edema or generalized demyelination. No mass effect. No midline shift. No hyperdense MCA or insular ribbon sign. Cerebral ventricles: No ventriculomegaly. Paranasal sinuses: Evidence of mild chronic ethmoid sinusitis. No findings of active paranasal sinus disease. Mastoid air cells: Visualized mastoid air cells are well aerated. Bones/joints: Unremarkable. No acute fracture. Soft tissues: Unremarkable. CT/CT head wo con* [id number] IMPRESSION: No evidence of active or acute intracranial pathologic process, hemorrhage, or trauma. CXR: Radiologist's impression: [address] [address] XRay Report Signed Patient: Dennis Singh Unit #: [id number] : 1965 Age/Sex: 55 / M ADM Date: 08/06/20 Loc: ER Room/Bed: Attending Dr: Ordering Provider/Ordering MD: Gildardo Dave MD Date of Service: 08/06/20 Procedure(s): XR chest 1V portable [id number] Accession Number(s): [id number] Report Number: [id number] PROCEDURE INFORMATION: Exam: XR Chest Exam date and time: 08/06/2020 6:50 PM Age: 55 years old Clinical indication: Other: Head ache; Additional info: Fever TECHNIQUE: Imaging protocol: XR of the chest. Views: 1 view. Total images: 1 COMPARISON: CR Chest 1 [place] [id number] 05/17/2017 2:50 PM FINDINGS: Lungs: No visible active interstitial or alveolar airspace disease. Pleural spaces: Unremarkable. No pleural effusion. No pneumothorax. Heart/Mediastinum: Unremarkable. No cardiomegaly. Bones/joints: Unremarkable. XR/XR chest 1V portable [id number] IMPRESSION: Nonacute. EKG Data^: EKG 1: Attestation: I personally reviewed and interpreted this EKG as follows: EKG interpretation date: 08/06/20 EKG interpretation time: 19:18 Interpretation: sinus tach hr [address] or t wave abnormalities qrs 95 qtc 390 Discharge Plan Discharge Patient Disposition: Admitted As Inpatient Admit Provider: Paula Spring Clinical Impression: Weakness, Fever Condition: Stable Coding Level of Care Code ED Circuitry Negative Inspector for Chg Fwd Exam Comprehensive
[2020-08-06] MEDS: acetaminophen 325 mg Tablet 650 MG PO (19:34)
[2020-08-06 19:40] LABS: Positive C 1; Positive M 1
[2020-08-06] MEDS: sodium chloride 0.9% 1,000 ML 999 ML IV ×3 (19:42→22:06)
[2020-08-06 20:02] LABS: Alanine Aminotransferase 124 U/L (0-41); Alkaline Phosphatase 116 IU/L (40-130); Anion Gap 13.8 (5-19); Aspartate Amino Transferase 146 U/L (0-40); Basophils # 0.1 10^3/uL (0.0-0.1); Basophils % 0.6 %; Blood Urea Nitrogen 22 mg/dL (6-20); Calcium 8.2 mg/dL (8.5-10.5); Carbon Dioxide 24 mmol/L (22-29); Chloride 95 mmol/L (98-107); Eosinophils % 0.2 %; Globulin 2.5 g/dL (1.3-4.6); Glomerular Filtration Rate 57.3 mL/min (90-130); Glucose 123 mg/dL (65-115); Hematocrit 49.4 % (42.0-52.0); Hemoglobin 17.7 g/dL (11.7-16.6); Lymphocytes % 16.3 %; Mean Corpuscular HGB Conc 35.8 g/dL (30.0-36.0); Mean Corpuscular Hemoglobin 34.8 pg (28.0-34.0); Mean Corpuscular Volume 97.1 fL (80-94); Mean Platelet Volume 11.2 fL (7.4-10.4); Monocytes # 0.5 10^3/uL (0.2-0.9); Monocytes % 4.4 %; Neutrophils # 9.45 10^3/uL (1.8-7.7); Neutrophils % 77.8 %; Nucleated Red Blood Cells % 0 %; Osmolality Calculated 273 mOsm/kg (285-295); Platelet Count 124 10^3/cmm (130-400); Potassium 3.8 mmol/L (3.5-5.1); Red Blood Count 5.09 10^6/uL (4.1-5.3); Red Cell Distribution Width 15.5 % (12.1-15.1); Slide Review Slide Review Perform; Sodium 129 mmol/L (136-145); Total Bilirubin 1.1 mg/dL (0.15-1.2); Total Protein 5.5 g/dL (6.6-8.7); White Blood Count 12.2 10^3/uL (4.0-10.0)
[2020-08-06 20:03] LABS: Lactate (Lactic Acid level) 2.1 mmol/L (0.5-2.2)
[2020-08-06 20:37] LABS: Specific Gravity, Urine 1.015 (1.005-1.030); Urine Appearance Clear (CLEAR); Urine Color Yellow (Yellow); pH Urine 5 (5-7)
[2020-08-06 20:38] LABS: Add Urine Microscopic? YES; Bilirubin Urine 1+ (Negative); Blood Urine 3+ (Negative); Glucose Urine UA Norm (Normal); Ketones Urine Negative (Negative); Leukocyte Esterase Urine Trace (Negative); Nitrate Urine Negative (Negative); Protein Urine 1+ (Negative); Urobilinogen Urine 4 mg/dL (Negative)
[2020-08-06 20:47] LABS: Bacteria Urine 1+ /hpf; Mucus Urine 1+ /hpf; RBC Urine 0-4 /hpf (0-2); Squamous Epithelial Cell Urine 0-4 /hpf (0-5); WBC Urine 0-4 /hpf (0-5)
[2020-08-06 20:50] LABS: SARS Covid-2 Antigen Negative (Negative)
--- NOTE | 2020-08-06 21:48 | PM.HP ---
Providers/Chief Complaint Primary Care Provider: GAIL Henry Chief Complaint: HEADACHE, GENERAL WEAKNESS History of Present Illness Dennis Singh is a 55 year old male who carries diagnosis of MDS, status post stem cell transplantation in 2018, received Jakafi treatment for worsening of transaminases monitored at [facility] presenting today with chief complaint of headache weakness and lethargy. Patient is stating that for last 6 to 7 days he has been feeling extremely lethargic and fatigued he is not able to carry his daily activities, his appetite has been decreased significantly, he is denying chest pain, shortness of breath, diarrhea, abdominal pain or vomiting. He has chronic dry eyes. He is also experiencing headache which she is attributing to sinus infection, he is describing his headache as throbbing in nature, located at frontal area, not associated with runny nose, runny eyes, he is endorsing low-grade fever 99-100.1. No neck pain. He decided to come to the hospital for further evaluation, Laboratory work-up revealed leukocytosis, polycythemia, extreme dehydration, GUS, hyponatremia chest x-ray without acute abnormalities, abnormal transaminases, he received Tylenol, ceftriaxone and fluids in the ER I would avoid Tylenol associated him with fluids add aspirin for polycythemia, he will need hematology consult in the morning Review of Systems Const: Reports: fever(s), chills, body aches, change in appetite and fatigue Eyes: Reports: eye discomfort, eye redness and dry eyes ENMT: Denies: throat pain Card: Denies: chest pain Resp: Denies: dyspnea GI: Reports: nausea; Denies: abdominal pain : Denies: flank pain Musc: Denies: neck pain Skin/Breast: Reports: other (Suntanned skin appearance); Denies: lesions Neuro: Reports: headache(s) Psych: Reports: depression; Denies: anxiety Endo: Reports: tired all the time Douglas/Lymph: Denies: easy bruising All/Imm: Denies: urticaria Medications/Allergies Home Medications Medication Instructions Recorded Confirmed Last Taken Type Jakafi 10 mg PO BID 01/18/20 02/24/20 02/05/20 History acyclovir 400 mg PO TID 01/18/20 02/24/20 02/05/20 History calcium citrate-vitamin D3 1 tab PO BID 01/18/20 02/24/2002/04/20 History [Calcium Citrate + D] loratadine [Claritin] 10 mg PO DAILY 01/18/20 02/24/20 02/05/20 History omega-3 fatty acids 1 cap PO BID 01/18/20 02/24/20 02/05/20 History pantoprazole 40 mg PO DAILY 01/18/20 02/24/20 02/05/20 History tacrolimus 0.5 mg PO DAILY 01/18/20 02/24/20 02/05/20 History ursodiol 250 mg PO BID 01/18/20 02/24/20 02/05/20 History aspirin 325 mg PO DAILY 08/06/20 08/06/20 08/06/20 08:00 History sulfamethoxazole-trimethoprim See Rx Instructions .ROUTE .COMPLEX 08/06/20 08/06/20 08/06/20 08:00 History [Bactrim DS] Allergies Allergy/AdvReac Type Severity Reaction Status Date / Time No Known Allergies Allergy Verified 02/24/20 08:25 PFSH Acute PFSH: Medical History Gallstones GERD (gastroesophageal reflux disease) Herpes simplex 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 stem cell transplant Surgical History H/O circumcision H/O colonoscopy 2016 H/O esophagogastroduodenoscopy 2016 H/O splenectomy age 2 days old H/O stem cell transplant History of back surgery x 2 Hx laparoscopic cholecystectomy (02/06/20) Family History Other Cancer Diabetes Hypertension Denies family history of CAD (coronary artery disease) Anesthesia complication Bleeding disorder Social History Smoking and tobacco status: never smoked Alcohol intake: current Alcohol intake frequency: holidays/special occasions only Household members: significant other Marital status: Single Current occupational status: disabled History of recent travel: No Vitals/I&O/Wt Last Vital Signs Temp 99.9 F H 08/06/20 18:44 Pulse 115 H 08/06/20 20:36 Resp 18 08/06/20 20:36 BP 111/69 08/06/20 20:36 Pulse Ox 93 08/06/20 20:36 08/06/20 08/06/20 08/06/20 06:59 14:59 22:59 Intake Total 865.8 / 865.8 Balance 865.8 / 865.8 Weight last 48 hrs Weight 101.151 kg Physical Exam Narrative: EXAM NARRATIVE: Middle-age male who was sitting in his chair without any active discomfort Dry eyes, hyperemia noted S1, S2 sinus tachycardia clinically looks dehydrated Abdomen soft nontender Lower extremity no edema gangrene or ulcer No active signs of meningitis no signs of stroke Clinically looks dehydrated Awake alert oriented x3 GCS 15 Suntanned skin appearance Appropriate mood and affect No acute respiratory distress no audible stridor or wheeze Data : 08/06/20 19:25 08/06/20 19:25 Micro: Microbiology 08/06/20 19:27 Blood Culture - Preliminary Blood SPECIMEN COLLECTED 08/06/20 19:25 Blood Culture - Preliminary Blood SPECIMEN COLLECTED A&P Assessment and plan (1) Weakness: Status: Acute (2) Low grade fever: Status: Acute (3) Abnormal transaminases: Status: Acute (4) Polycythemia: Status: Acute (5) GUS (acute kidney injury): Status: Acute (6) Dehydration: Status: Acute (7) Hyponatremia: Status: Acute Additional A&P Information Generalized malaise Abnormal transaminases low-grade fever however no active signs of meningitis chest x-ray unremarkable Polycythemia with hyponatremia We will start aspirin Consider hematology consult he might benefit from a phlebotomy For low-grade fever I do not have any active source of infection, he is not septic, I would avoid adding any antibiotics, his tachycardia is most likely secondary to dehydration His CBC is consistent with hemoconcentration Hyponatremia consistent with hypovolemic hyponatremia due to poor p.o. intake, continue IV fluid resuscitation For headache I would use sumatriptan x1, avoid ketorolac because of GUS, concern for hyperviscosity with polycythemia His GUS seems secondary to dehydration as well anticipating improvement with IV fluid resuscitation He does have suntanned skin appearance concern for hemochromatosis, request records from [facility] Full code Cardiac diet DVT prophylaxis Heparin Attestations Medical Necessity Statement*: Anticipating discharge within 48 hours will need overnight IV fluid hydration for severe dehydration, GUS Time Spent in Patient Care: 30mins Coding Level of Care Code Acute Pipe Line Maintenance Supervisor for Chg Fwd Diagnoses Weakness R53.1 Low grade fever R50.9 Abnormal transaminases R74.8 Polycythemia D75.1 GUS (acute kidney injury) N17.9 Dehydration E86.0 Hyponatremia E87.1
[2020-08-06] MEDS: cefTRIAXone 2,000 MG in sodium chloride 0.9% (plus) 50 ML 100 MG IV (22:06)
[2020-08-07] VITALS (9 sets, daily range): BP systolic 109–134; BP diastolic 60–77; PULSE 93–110; RESP 13–30; TEMP 36.8–39.5; O2SAT 92–94
[2020-08-07] MEDS: sodium chloride 0.9% 1,000 ML 75 ML IV (00:24)
[2020-08-07] MEDS: heparin 5,000 unit/mL INJ 1 mL 5000 UNIT SUBCUT ×4 (00:24→23:32)
[2020-08-07] MEDS: SUMAtriptan 25 mg Tablet PO (00:24)
[2020-08-07 04:07] LABS: Hematocrit 46.4 % (42.0-52.0); Hemoglobin 16.2 g/dL (11.7-16.6); Mean Corpuscular HGB Conc 34.9 g/dL (30.0-36.0); Mean Corpuscular Hemoglobin 33.8 pg (28.0-34.0); Mean Corpuscular Volume 96.7 fL (80-94); Mean Platelet Volume 12.6 fL (7.4-10.4); Platelet Count 120 10^3/cmm (130-400); Red Cell Distribution Width 15.7 % (12.1-15.1); White Blood Count 12.4 10^3/uL (4.0-10.0)
[2020-08-07 04:33] LABS: Absolute Neutrophil 10.8 10^3/cmm (1.4-6.5); Absolute Segmented Neutrophil 8.9 10/cmm (1.6-7.1); Band Neutrophils Absolute 1.9 10^3/cmm (0.0-1.2); Eosinophils 0 %; Lymphocytes 7 %; Lymphocytes Absolute 1.1 10^3/cmm (1.2-3.4); Monocytes Absolute 0.5 10^3/cmm (0.1-0.6); Platelet Estimate Normal (Normal); Segmented Neutrophils 72 %; Slide Review Slide Review Perform; Total Cells Counted 100 (0-100); Toxic Granulation 2+; Toxic Vacuolation 1+
[2020-08-07 05:29] LABS: Alanine Aminotransferase 110 U/L (0-41); Albumin Level 2.8 g/dL (3.5-5.2); Alkaline Phosphatase 107 IU/L (40-130); Blood Urea Nitrogen 18 mg/dL (6-20); Carbon Dioxide 21 mmol/L (22-29); Chloride 98 mmol/L (98-107); Globulin 2.2 g/dL (1.3-4.6); Glomerular Filtration Rate 52.6 mL/min (90-130); Glucose 110 mg/dL (65-115); Osmolality Calculated 269 mOsm/kg (285-295); Sodium 128 mmol/L (136-145); Total Bilirubin 0.9 mg/dL (0.15-1.2)
[2020-08-07 05:37] LABS: Anion Gap 13.3 (5-19); Aspartate Amino Transferase 125 U/L (0-40); Potassium 4.3 mmol/L (3.5-5.1)
[2020-08-07] MEDS: NON-FORMULARY MEDICATION (Ursodiol 250 mg tablet) 250 EACH PO ×2 (08:36→17:59)
--- NOTE | 2020-08-07 10:01 | PC.CHAP ---
Pastoral Care Encounter/Spiritual Assessment Type of Contact [] Declined precision aircraft structure assembler visit [] Patient/Family/Request visit [] Outpatient visit [] Follow-up visit [] Physician referral [] Code/Alert [x] Routine visit [] Staff referral [] Actively dying [x] Patient sleeping [] Family support [] [] Out of room [] Palliative care [] [] Receiving care in room [] Pre-surgical visit [] Trauma [] Long length of stay [] ICU visit [] Other: Relational/Emotional Strength [] Patient feels connected with others/family/visitors/staff [] Distress [] Loneliness/isolation [] Abandonment Spirituality of Patient [] Person of Gwendolyn [] Attends Mosque of their Gwendolyn [] Believes in Prayer [] Reads Bible or Christianity materials [] There are Spiritual issues to be addressed Railcar Brake Operator Interventions [x] Prayer [] Active listening [] Non-anxious presence [] Spiritual/emotional support [] Crisis/trauma care [] Spiritual counseling [] Bereavement support [] Provided bereavement packet [] Provided Bible/devotional materials [] Provided toy/stuffed animal, coloring book to patient or family member [] Provided Communion [] Anointing/Qulin [] Salvation []x Completed spiritual assessment [] Other: Impact on Illness or Injury [] Angry [] Fearful [] Anxious [] Often cries [] Exhaustion [] Unable to work [] Unable to attend samaritan [] Unable to walk/stand [] Unable to read [] Unable to drive [] Unable to eat/drink [] Unable to sleep [] Unable to be with family [] Patient intubated [] Other: Summary Time spent with patient
[2020-08-07] MEDS: sodium chloride 0.9% 1,000 ML 125 ML IV ×2 (14:00→20:25)
--- NOTE | 2020-08-07 14:10 | P.PN_ITS ---
Subjective Subjective: Interval history: Patient was seen and examined this morning, was complaining of headache, patient is currently spiking temp.T Max : 103.1. His other vitals and labs have been reviewed. Vitals/I&O/Wt Last Vital Signs Temp 98.2 F 08/07/20 12:06 Pulse 100 08/07/20 12:06 Resp 13 08/07/20 12:06 BP 133/73 08/07/20 12:06 Pulse Ox 93 08/07/20 12:06 08/06/20 08/07/20 08/07/20 22:59 06:59 14:59 Intake Total 865.8 / 865.8 2150 / 3015.8 480 / 480 Output Total 350 / 350 140 / 140 Balance 865.8 / 865.8 1800 / 2665.8 340 / 340 Weight last 48 hrs Weight 101.151 kg Physical Exam Const: COMMON NORMALS: patient oriented x3 HENMT: COMMON NORMALS: normocephalic and atraumatic HEAD & SCALP: normocephalic and atraumatic Chest: CHEST: Yes Symmetrical chest wall rise Resp: COMMON NORMALS: clear to auscultation bilaterally EFFORT & INSPECTION: Yes symmetric chest movement AUSCULTATION: clear to auscultation bilaterally Cardio: COMMON NORMALS: regular rate, regular rhythm, S1 normal heart sound present, S2 normal heart sound present, No gallops present (Cardio), No murmurs present (Cardio), No rub (Cardio) and Peripheral pulses 2+ throughout RATE: regular rate RHYTHM: regular rhythm HEART SOUNDS: S1 normal heart sound present and S2 normal heart sound present PERIPHERAL PULSES: Peripheral puls es 2+ throughout GI: COMMON NORMALS: Normal to inspection, nondistended, normoactive bowel sounds present, Soft to palpation, non-tender, No hepatosplenomegaly present and no masses AUSCULTATION: Yes normoactive bowel sounds PALPATION: Yes Soft to palpation and Yes No hepatosplenomegaly present RECTAL EXAM: Yes deferred Extremity: COMMON NORMALS: no clubbing, cyanosis or edema and no pedal edema Neuro: COMMON NORMALS: patient oriented x3 Data : 08/07/20 03:18 08/07/20 04:52 Micro: Microbiology 08/06/20 19:27 Blood Culture - Preliminary Blood SPECIMEN COLLECTED 08/06/20 19:25 Blood Culture - Preliminary Blood SPECIMEN COLLECTED A&P Assessment and plan (1) Sepsis: Sepsis: Currently source is unclear. Blood culture Urine culture Sputum culture Lactic acid: Normal Procalcitonin : 1.20 X-ray chest: No visible active interstitial or alveolar airspace disease. CT head without contrast: No acute intracranial pathology Patient was initially on ceftriaxone, given his immunocompromised status. Ceftriaxone was discontinued. He has been started on vancomycin and Zosyn to broaden the antibiotic coverage. Status: Acute (2) GUS (acute kidney injury): GUS versus GUS on CKD : Likely secondary to dehydration and sepsis. Admitted with serum creatinine of: 1.3, baseline serum creatinine: Baseline serum creatinine unknown. Urine electrolytes Monitor BMP Continue IV hydration Avoid nephrotoxic Status: Acute (3) Weakness: Status: Acute (4) Abnormal transaminases: Status: Acute (5) Polycythemia: Status: Acute (6) Dehydration: Status: Acute (7) Hyponatremia: Status: Acute Additional A&P Information Generalized malaise Abnormal transaminases low-grade fever however no active signs of meningitis chest x-ray unremarkable Polycythemia with hyponatremia We will start aspirin Consider hematology consult he might benefit from a phlebotomy For low-grade fever I do not have any active source of infection, he is not septic, I would avoid adding any antibiotics, his tachycardia is most likely secondary to dehydration His CBC is consistent with hemoconcentration Hyponatremia consistent with hypovolemic hyponatremia due to poor p.o. intake, continue IV fluid resuscitation For headache I would use sumatriptan x1, avoid ketorolac because of GUS, concern for hyperviscosity with polycythemia His GUS seems secondary to dehydration as well anticipating improvement with IV fluid resuscitation He does have suntanned skin appearance concern for hemochromatosis, request records from [facility] Full code Cardiac diet DVT prophylaxis Heparin Attestations Medical Necessity Statement*: Patient needs to be in hospital for management of sepsis. Coding Level of Care Code Acute Computer Numeric Control Setter for [facility] Fwd Diagnoses Sepsis A41.9 GUS (acute kidney injury) N17.9 Weakness R53.1 Abnormal transaminases R74.8 Polycythemia D75.1 Dehydration E86.0 Hyponatremia E87.1
--- NOTE | 2020-08-07 14:15 | PC.NURSE ---
Medication order change Received orders from Dr. Ramirez to increase NS to 125ml/hr due to patients low urine output and dark color of urine. Nurse will continue to monitor I&O
[2020-08-07] MEDS: omega-3 fatty acids 1,000 mg Capsule 1000 MG PO (17:50)
[2020-08-07] MEDS: acetaminophen 325 mg Tablet 650 MG PO ×2 (18:23→23:32)
--- NOTE | 2020-08-07 18:28 | PC.NURSE ---
Patient has temperature of 103.1. Doctor notified. Ordered blood culture STAT, urine culture to be collected when patient voids. Patient received 650mg Tylenol PO. Nurse will reassess temperature within 30minutes. Patient has no complaints of pain.
[2020-08-07 19:11] LABS: Lactic Sepsis W/Reflex 1.5 mmol/L (0.5-2.2)
[2020-08-07] MEDS: cefTRIAXone 1,000 MG in sodium chloride 0.9% (plus) 50 ML 100 MG IV (20:24)
--- NOTE | 2020-08-07 20:34 | PC.NURSE ---
Dr. Spring notified of fever. Notified that it is not time to give PRN Tylenol yet. Ordered to have patient drink fluids and use cold packs as needed.
--- NOTE | 2020-08-07 22:03 | PC.PHAR ---
Vancomycin is dosed at 1250mg IVPB every 12 hours to produce a predicted trough level of 18.54 (population based pharmacokinetic analysis). A trough level has been ordered from the lab to be obtained before the fourth dose to confirm and adjust if needed.
[2020-08-07] MEDS: vancomycin 1,250 MG/250 ML PIGGYBACK 250 MG IV (22:08)
--- NOTE | 2020-08-07 22:12 | PC.NURSE ---
Patient asked for shower at 1900. At 2029, patient was offered a shower and refused.
[2020-08-07] MEDS: piperacillin-tazobactam 3.375 GM in sodium chloride 0.9% (plus) 50 ML IV (23:32)
[2020-08-08] VITALS (10 sets, daily range): BP systolic 103–113; BP diastolic 57–71; PULSE 75–117; RESP 18–33; TEMP 36.4–39.6; O2SAT 92–98
[2020-08-08 04:10] LABS: Basophils % 0.3 %; Eosinophils % 0.1 %; Hematocrit 44.5 % (42.0-52.0); Hemoglobin 15.9 g/dL (11.7-16.6); Lymphocytes # 1.4 10^3/uL (0.8-4.8); Lymphocytes % 11.6 %; Mean Corpuscular HGB Conc 35.7 g/dL (30.0-36.0); Mean Corpuscular Hemoglobin 33.8 pg (28.0-34.0); Mean Corpuscular Volume 94.7 fL (80-94); Mean Platelet Volume 11.3 fL (7.4-10.4); Monocytes # 0.4 10^3/uL (0.2-0.9); Neutrophils # 10.29 10^3/uL (1.8-7.7); Neutrophils % 84.3 %; Nucleated Red Blood Cells % 0 %; Platelet Count 132 10^3/cmm (130-400); Red Cell Distribution Width 15.9 % (12.1-15.1); White Blood Count 12.2 10^3/uL (4.0-10.0)
[2020-08-08 04:29] LABS: Alanine Aminotransferase 80 U/L (0-41); Albumin Level 2.6 g/dL (3.5-5.2); Alkaline Phosphatase 97 IU/L (40-130); Anion Gap 12.7 (5-19); Aspartate Amino Transferase 97 U/L (0-40); Blood Urea Nitrogen 19 mg/dL (6-20); Calcium 7.6 mg/dL (8.5-10.5); Carbon Dioxide 20 mmol/L (22-29); Chloride 100 mmol/L (98-107); Globulin 2.3 g/dL (1.3-4.6); Glomerular Filtration Rate 62.9 mL/min (90-130); Glucose 105 mg/dL (65-115); Osmolality Calculated 271 mOsm/kg (285-295); Potassium 3.7 mmol/L (3.5-5.1); Sodium 129 mmol/L (136-145); Total Bilirubin 1.1 mg/dL (0.15-1.2); Total Protein 4.9 g/dL (6.6-8.7)
[2020-08-08] MEDS: acetaminophen 325 mg Tablet 650 MG PO ×2 (05:10→13:01)
--- NOTE | 2020-08-08 05:52 | PC.NURSE ---
Dr. Spring notified of patient having continued fever of 103. PRN Tylenol was given with no improvement. Patient has been given cold wrags with no improvement.
[2020-08-08] MEDS: sodium chloride 0.9% 1,000 ML 125 ML IV (07:05)
--- NOTE | 2020-08-08 07:51 | XR_ITS ---
WS: [id number] Portable AP upright chest, 08/08/2020 Clinical Data: Fever Comparison: Portable chest, 08/06/2020. Findings: No nodules, masses or effusions are seen. The heart is normal. The pulmonary vascularity is not increased. No pneumothorax is seen. There is patchy atelectasis and/or minimal pneumonia seen in the left lung base. XR/XR chest 1V portable [id number] Impression: Patchy atelectasis and/or minimal pneumonia at left costophrenic angle.
[2020-08-08] MEDS: piperacillin-tazobactam 3.375 GM in sodium chloride 0.9% (plus) 50 ML IV ×2 (08:36→21:14)
[2020-08-08] MEDS: NON-FORMULARY MEDICATION (Ursodiol 250 mg tablet) 250 EACH PO ×2 (08:37→17:48)
[2020-08-08] MEDS: omega-3 fatty acids 1,000 mg Capsule 1000 MG PO ×2 (08:37→17:48)
[2020-08-08] MEDS: heparin 5,000 unit/mL INJ 1 mL 5000 UNIT SUBCUT ×3 (08:37→21:14)
[2020-08-08] MEDS: loratadine 10 mg Tablet PO (08:37)
[2020-08-08] MEDS: vancomycin 1,250 MG/250 ML PIGGYBACK 250 MG IV ×2 (09:47→20:42)
--- NOTE | 2020-08-08 09:59 | PC.CHAP ---
Pastoral Care Encounter/Spiritual Assessment Type of Contact [] Declined firer [place] visit [] Patient/Family/Request visit [] Outpatient visit [] Follow-up visit [] Physician referral [] Code/Alert [x] Routine visit [] Staff referral [] Actively dying [] Patient sleeping [] Family support [] [] Out of room [] Palliative care [] [] Receiving care in room [] Pre-surgical visit [] Trauma [] Long length of stay [] ICU visit [] Other: Relational/Emotional Strength [] Patient feels connected with others/family/visitors/staff [] Distress [] Loneliness/isolation [] Abandonment Spirituality of Patient [] Person of Gwendolyn [] Attends Adventism of their Gwendolyn [] Believes in Prayer [] Reads Bible or Shinto materials [] There are Spiritual issues to be addressed Police Stenographer Interventions [x] Prayer [x] Active listening [x] Non-anxious presence [x] Spiritual/emotional support [] Crisis/trauma care [] Spiritual counseling [] Bereavement support [] Provided bereavement packet [] Provided Bible/devotional materials [] Provided toy/stuffed animal, coloring book to patient or family member [] Provided Communion [] Anointing/[place] [] Salvation [x] Completed spiritual assessment [] Other: Impact on Illness or Injury [] Angry [] Fearful [] Anxious [] Often cries [] Exhaustion [] Unable to work [] Unable to attend hindu [] Unable to walk/stand [] Unable to read [] Unable to drive [] Unable to eat/drink [] Unable to sleep [] Unable to be with family [] Patient intubated [] Other: Summary patient very sleepy... head continues to ache.. Time spent with patient 5 min
--- NOTE | 2020-08-08 15:18 | CTR_ITS ---
PROCEDURE INFORMATION: Exam: CT Chest Without Contrast; Diagnostic Exam date and time: 08/08/2020 3:18 PM Age: 55 years old Clinical indication: Fever; Other: Weakness; Prior surgery; Surgery type: Spleen, gb; Additional info: Persistent fever TECHNIQUE: Imaging protocol: Diagnostic computed tomography of the chest without contrast. Radiation optimization: All CT scans at this facility use at least one of these dose optimization techniques: automated exposure control; mA and/or kV adjustment per patient size (includes targeted exams where dose is matched to clinical indication); or iterative reconstruction. COMPARISON: 1. CR XR chest 1V portable [id number] 08/08/2020 8:15 AM 2. CR (CHEST, ) 08/06/2020 6:51 PM RADIATION DOSE METRICS: Total DLP (mGy-cm): 2548.57 FINDINGS: Limitations: Study is somewhat limited by patient respiratory motion. Lungs: There is some dependent atelectasis at the right lung base. There is some minimal infiltrate or atelectasis posteriorly at the left lung base. Pleural spaces: There is a small left pleural effusion. Heart: Unremarkable. No cardiomegaly. No pericardial effusion. Aorta: Unremarkable. No aortic aneurysm. Lymph nodes: There is no evidence of lymphadenopathy. Small right paratracheal lymph nodes are present measuring up to 7 x 10 mm. Bones/joints: There is mild scoliosis of the thoracic spine. Soft tissues: Unremarkable. IMPRESSION: 1. Small left pleural effusion 2. Minimal left basilar infiltrate. PROCEDURE INFORMATION: Exam: CT Abdomen And Pelvis Without Contrast Exam date and time: 08/08/2020 3:18 PM Age: 55 years old Clinical indication: Fever; Other: Weakness; Prior surgery; Surgery type: Spleen, gb; Additional info: Persistent fever TECHNIQUE: Imaging protocol: Computed tomography of the abdomen and pelvis without contrast. Radiation optimization: All CT scans at this facility use at least one of these dose optimization techniques: automated exposure control; mA and/or kV adjustment per patient size (includes targeted exams where dose is matched to clinical indication); or iterative reconstruction. COMPARISON: 1. CR XR chest 1V portable [id number] 08/08/2020 8:15 AM 2. CR (CHEST, ) 08/06/2020 6:51 PM RADIATION DOSE METRICS: Total DLP (mGy-cm): 2548.57 FINDINGS: Limitations: The absence of intravenous contrast lessens the sensitivity of this study for solid organ abnormalities. Liver: Normal. No mass. Gallbladder and bile ducts: Normal. No calcified stones. No ductal dilation. Pancreas: The pancreas is normal. Spleen: There has been a splenectomy. There is some rounded soft tissue densities in the left upper quadrant of the abdomen measuring up to 3.5 cm consistent with some residual splenic implants or mild splenosis. Adrenal glands: The adrenal glands are normal. Kidneys and ureters: There are multiple bilateral renal collecting system calcifications. There is no evidence of hydronephrosis. There is no stone along the course of either ureter. Stomach and bowel: There is no evidence of colitis/diverticulitis. There are small diverticula arising from the 2nd and 3rd portions of the duodenum. Appendix: A normal appendix is identified. Intraperitoneal space: Unremarkable. No free air. No significant fluid collection. Vasculature: Unremarkable. No abdominal aortic aneurysm. Lymph nodes: Unremarkable. No enlarged lymph nodes. Urinary bladder: Unremarkable as visualized. Reproductive: The prostate gland demonstrates nonspecific parenchymal calcifications. Bones/joints: There is a PLIF at L5-S1. Soft tissues: There is some focal skin thickening and mild edema in the subcutaneous tissues of the left lower quadrant of the anterior abdominal wall. This could represent sites of subcutaneous injection. Please correlate with the physical examination findings. Small bubble of gas is seen in the region suggesting injection site. CT/CT chest abd pel wo con IMPRESSION: 1. Nephrolithiasis 2. No acute finding in the abdomen or pelvis. Radiation Dose CTDIVOL = (mGy): DLP = 2548.57~2548.57 (mGy-cm)
--- NOTE | 2020-08-08 15:50 | PC.NURSE ---
received orders to change dose of NS from 125ml/hr to 50ml/hr
[2020-08-08] MEDS: sodium chloride 0.9% 1,000 ML 50 ML IV (16:00)
--- NOTE | 2020-08-08 16:28 | P.TS_ITS ---
Transfer Summary Providers Date of Admission: 08/08/20 07:21 Date of Discharge: 08/08/20 Attending Provider at Admission: Paula Spring MD Attending Provider at Transfer: Sergey Ramirez MD Primary Care Provider: GAIL Henry Anticipated Date of Transfer: Anticipated date of transfer: 08/08/20 Receiving Facility & Provider: Receiving Provider: [] Receiving facility: [] Diagnoses at Discharge Discharge Diagnosis (1) Sepsis: Status: Acute (2) GUS (acute kidney injury): Status: Resolved (3) Weakness: Status: Acute (4) Abnormal transaminases: Status: Acute (5) Polycythemia: Status: Acute (6) Dehydration: Status: Acute (7) Hyponatremia: Status: Acute Reason for Visit Reason for Visit: HEADACHE, GENERAL WEAKNESS Hospital Course Hospital Course 55-year-old male with past medical history of MDS s/p stem cell transplant in 2018 received Jakafi treatment for worsening of transaminases monitored at [facility] was admitted with with chief complaint of headache weakness and lethargy, and low-grade temperature, on admission patient stated that for last 6 to 7 days he has been feeling extremely lethargic and fatigued he is not able to carry his daily activities, his appetite has been decreased significantly, he denied any chest pain, shortness of breath, diarrhea, abdominal pain or vomiting.Laboratory work-up revealed leukocytosis, polycythemia, GUS, hyponatremia chest x-ray without acute abnormalities, abnormal transaminases. During this hospital stay he was having persistent temperature spikes T-max: 103, with tachycardia and tachypnea with leukocytosis he was started being managed for sepsis currently source unknown: Patient has been kept on broad-spectrum antibiotics namely vancomycin and Zosyn, initially he had received ceftriaxone on admission which was later discontinued. Initial blood cultures have been negative till date,Lactic acid:Normal Procalcitonin : 1.20 X-ray chest: No visible active interstitial or alveolar airspace disease. Repeat chest x-ray done on 08/08: Has not shown any much significant change. CT head without contrast: No acute intracranial pathology. CT chest abdomen pelvis without contrast is pendinD echo is pending: His GUS which was likely secondary to dehydration responded well to IV hydration serum creatinine is at its baseline. AST ALT has also shown improvement with IV hydration. Alk phos has remained normal. Patient also carries new diagnosis of polycythemia, diagnosed on August 02 ,s/p phlebotomy with 250 cc/replacement with 250 cc normal saline on August 06, 2020. As far as newly diagnosed polycythemia is concerned, etiology is unclear could be post transplant erythrocytosis or part of other myeloproliferative disorder, his local oncologist Dr. Corral is interested in doing erythropoietin level or BX mass, JAK2 mutation, BCR ABL 1 testing, CLR/MPL testing, patient is already on aspirin, optimum IV hydration is being maintained. Given the fact that the his BMT physician is at [facility], and sees knows the patient quite well, it was prudent to transfer the patient to [facility] for further management, patient family has also requested the same.Dr. Lubin her bone marrow transplant physician has accepted the patient. Physical Exam Const: COMMON NORMALS: patient oriented x3 HENMT: COMMON NORMALS: normocephalic and atraumatic HEAD & SCALP: normocephalic and atraumatic Chest: CHEST: Yes Symmetrical chest wall rise Resp: COMMON NORMALS: clear to auscultation bilaterally EFFORT & INSPECTION: Yes symmetric chest movement AUSCULTATION: clear to auscultation bilaterally Cardio: COMMON NORMALS: regular rate, regular rhythm, S1 normal heart sound present, S2 normal heart sound present, No gallops present (Cardio), No murmurs present (Cardio), No rub (Cardio) and Peripheral pulses 2+ throughout RATE: regular rate RHYTHM: regular rhythm HEART SOUNDS: S1 normal heart sound present and S2 normal heart sound present PERIPHERAL PULSES: Peripheral pulses 2+ throughout GI: COMMON NORMALS: Normal to inspection, nondistended, normoactive bowel sounds present, Soft to palpation, non-tender, No hepatosplenomegaly present and no masses AUSCULTATION: Yes normoactive bowel sounds PALPATION: Yes Soft to palpation and Yes No hepatosplenomegaly present RECTAL EXAM: Yes deferred Extremity: COMMON NORMALS: no clubbing, cyanosis or edema and no pedal edema Neuro: COMMON NORMALS: patient oriented x3 TS Data Data Completed and Pending: Completed Studies During Hospitalization Category Date Time Status CT head wo con* [id number] Urgent Cat Scan 08/06/20 18:50 Completed XR chest 1V maciel ble [id number] Routine Exams 08/08/20 07:51 Completed XR chest 1V maciel ble [id number] Urgent Exams 08/06/20 18:50 Completed Pending at discharge Category Date Time Status CT chest abd pel wo con Routine Cat Scan 08/08/20 15:18 Ordered Blood Culture Sta t Lab 08/06/20 19:27 Results Blood Culture Sta t Lab 08/07/20 18:16 Results Complete Blood Co unt w/Auto AM LABS Lab 08/09/20 04:00 Ordered Comprehensive Met abolic Panel AM LA BS Lab 08/09/20 04:00 Ordered Erythropoietin Ro utine Lab 08/09/20 05:00 Ordered MRSA by PCR Routi ne Lab 08/08/20 12:51 Received Respiratory Viral Panel PCR Routine Lab 08/08/20 12:51 Received Urine Culture Sta t Lab 08/07/20 19:00 Received Vancomycin Trough Timed Lab 08/09/20 21:00 Ordered CV echo complete* [id number] Routine Ultrasound 08/09/20 07:00 Ordered Labs from last 24 hours 08/08/20 08/08/20 08/08/20 12:51 03:46 03:46 WBC 12.2 H RBC 4.70 Hgb 15.9 Hct 44.5 MCV 94.7 H MCH 33.8 MCHC 35.7 RDW 15.9 H Plt Count 132 MPV 11.3 H Neut % (Auto) 84.3 Lymph % (Auto) 11.6 Ward % (Auto) 3.0 Eos % (Auto) 0.1 Baso % (Auto) 0.3 Neut # (Auto) 10.29 H Lymph # (Auto) 1.4 Ward # (Auto) 0.4 Eos # (Auto) 0.0 Baso # (Auto) 0.0 Nucleated RBC % (a uto) 0 Nucleated RBCs # 0.0 Sodium 129 L Potassium 3.7 Chloride 100 Carbon Dioxide 20 L Anion Gap 12.7 BUN 19 Creatinine 1.2 GFR Calculation 62.9 L Glucose 105 Calculated Osmolal ity 271 L Lactic Acid Calcium 7.6 L Total Bilirubin 1.1 AST 97 H ALT 80 H Alkaline Phosphata se 97 Total Protein 4.9 L Albumin 2.6 L Globulin 2.3 Procalcitonin RSV Nasal Swab Pending RSV Nasal Swab Int Cntl Pending Adenovirus (PCR) Pending Human Metapneumovi r PCR Pending Influenza A (RT-PC R) Pending Influenza A (H1) P CR Pending Influenza A (H3) P CR Pending Influenza B (RT-PC R) Pending Parainfluenzae Typ e 1 Pending Parainfluenzae Typ e 2 Pending Parainfluenzae Typ e 3 Pending RSV Ab Comment Pending Rhinovirus (PCR) Pending 08/07/20 08/07/20 18:13 18:13 WBC RBC Hgb Hct MCV MCH MCHC RDW Plt Count MPV Neut % (Auto) Lymph % (Auto) Ward % (Auto) Eos % (Auto) Baso % (Auto) Neut # (Auto) Lymph # (Auto) Ward # (Auto) Eos # (Auto) Baso # (Auto) Nucleated RBC % (a uto) Nucleated RBCs # Sodium Potassium Chloride Carbon Dioxide Anion Gap BUN Creatinine GFR Calculation Glucose Calculated Osmolal ity Lactic Acid 1.5 Calcium Total Bilirubin AST ALT Alkaline Phosphata se Total Protein Albumin Globulin Procalcitonin 1.20 H RSV Nasal Swab RSV Nasal Swab Int Cntl Adenovirus (PCR) Human Metapneumovi r PCR Influenza A (RT-PC R) Influenza A (H1) P CR Influenza A (H3) P CR Influenza B (RT-PC R) Parainfluenzae Typ e 1 Parainfluenzae Typ e 2 Parainfluenzae Typ e 3 RSV Ab Comment Rhinovirus (PCR) Vitals: Last Vital Signs Temp 97.5 F L 08/08/20 16:08 Pulse 75 08/08/20 16:08 Resp 18 08/08/20 16:08 BP 103/57 08/08/20 16:08 Pulse Ox 97 08/08/20 16:08 TS Medications Medications Home Medications Jakafi 10 mg PO BID 01/18/20 [History Confirmed 08/06/20] acyclovir 400 mg PO TID 01/18/20 [History Confirmed 08/06/20] calcium citrate-vitamin D3 [Calcium Citrate + D] 1 tab PO BID 01/18/20 [History Confirmed 08/06/20] loratadine [Claritin] 10 mg PO DAILY 01/18/20 [History Confirmed 08/06/20] omega-3 fatty acids 1 cap PO BID 01/18/20 [History Confirmed 08/06/20] pantoprazole 40 mg PO DAILY 01/18/20 [History Confirmed 08/06/20] tacrolimus 0.5 mg PO EVERY OTHER DAY 01/18/20 [History Confirmed 08/06/20] ursodiol 250 mg PO BID 01/18/20 [History Confirmed 08/06/20] aspirin 325 mg PO DAILY 08/06/20 [History Confirmed 08/06/20] sulfamethoxazole-trimethoprim [Bactrim DS] See Rx Instructions .ROUTE .COMPLEX 08/06/20 [History Confirmed 08/06/20] Active Medications Acetaminophen (Acetaminophen 325 Mg Tablet) 650 mg PO Q6H PRN PRN Reason: MILD PAIN Last Admin: 08/08/20 13:01 Dose: 650 mg Documented by: Heparin Sodium (Beef Lung) (Heparin 5,000 Unit/Ml Inj 1 Ml) 5,000 unit SUBCUT Q8H [facility] Last Admin: 08/08/20 15:42 Dose: 5,000 unit Documented by: Piperacillin Sod/Tazobactam (Sod 3.375 gm/ Sodium Chloride) 50 mls @ 12.5 mls/hr IV Q8H [facility]; Protocol Last Infusion: 08/08/20 12:30 Dose: 12.5 mls/hr Documented by: Vancomycin/PEG/NADA/Lysine/Water (Vancocin) 1,250 mg in 250 mls @ 250 mls/hr IV Q12H [facility] Last Infusion: 08/08/20 11:23 Dose: Infused Documented by: Sodium Chloride (Sodium Chloride 0.9%) 1,000 mls @ 50 mls/hr IV .Q20H [facility] Loratadine (Loratadine 10 Mg Tablet) 10 mg PO DAILY [facility] Last Admin: 08/08/20 08:37 Dose: 10 mg Documented by: Non-Formulary Medication (Ruxolitinib [Jakafi]) 10 mg PO BID [facility] Last Admin: 08/08/20 08:39 Dose: 10 mg Documented by: Non-Formulary Medication (Ursodiol) 250 mg PO BID [facility] Last Admin: 08/08/20 08:37 Dose: 250 mg Documented by: Patient's Own Med- (Pantoprazole 40mg) 1 each PO DAILY [facility] Last Admin: 08/08/20 08:38 Dose: 1 each Documented by: Patient's Own Med- (Aspirin 325mg) 1 each PO DAILY [facility] Last Admin: 08/08/20 08:39 Dose: 1 each Documented by: Non-Formulary Medication (Calcium Citrate-Vitamin D3 [Calcium Citrate + D]) 1 tab PO BID [facility] Uzpts-[id number]-Qtzn Ethyl Esters (Cantrall-3 Fatty Acids 1,000 Mg Capsule) 1,000 mg PO BID [facility] Last Admin: 08/08/20 08:37 Dose: 1,000 mg Documented by: Discharge Plan Discharge Patient Disposition: Home Condition: Stable Prescriptions: Continued acyclovir 400 mg tablet 400 mg PO TID RF: 0 pantoprazole 40 mg tablet,delayed release (DR/EC) 40 mg PO DAILY RF: 0 ursodiol 250 mg tablet 250 mg PO BID RF: 0 loratadine [Claritin] 10 mg Tablet 10 mg PO DAILY RF: 0 tacrolimus 0.5 mg capsule 0.5 mg PO EVERY OTHER DAY RF: 0 omega-3 fatty acids Capsule 1 cap PO BID RF: 0 calcium citrate-vitamin D3 [Calcium Citrate + D] 315 mg-5 mcg (200 unit) Tablet 1 tab PO BID RF: 0 Jakafi 10 mg tablet 10 mg PO BID RF: 0 aspirin 325 mg Tablet 325 mg PO DAILY RF: 0 Bactrim DS 800-160 mg Tablet See Rx Instructions .ROUTE .COMPLEX RF: 0 Discharge Orders: Discharge Order (Routine); Ordered 08/08/20 Ordered By: Sergey Ramirez Discharge Diet: Regular Discharge Activity: Resume usual activity Patient Instructions: Opioid Safety Transfer Attestations Time Spent in Transfer Care*: greater than 30 min Specific Discharge Activities: Specific discharge activities: educating patient, educating and/or supporting family/caregiver, discussing with pcp/other providers, discussing with child support case officer/social workers/dc planners, documenting/other paperwork and evaluating patient/reviewing data Status at Transfer: Cognitive status at transfer: cognitively intact , Behavioral status at transfer: cooperative , Functional status at transfer: independent ambulation Overall status at transfer: patient is back to baseline Quality Metrics Clinical Quality Measures: During this hospital stay, did patient experience: None Coding Level of Care Code Acute Janitorial Cleaner for Kaushikg Fwd Diagnoses Sepsis A41.9 GUS (acute kidney injury) N17.9 Weakness R53.1 Abnormal transaminases R74.8 Polycythemia D75.1 Dehydration E86.0 Hyponatremia E87.1
[2020-08-08] MEDS: iohexol 300 mg/mL 50 mL Btl IV (17:36)
--- NOTE | 2020-08-08 20:57 | PC.NURSE ---
Report called to [facility]. Awaiting transport.
--- NOTE | 2020-08-08 22:19 | PC.NURSE ---
Patient has no complaints at this time. VSS. Patient left with [facility] transport.
[2020-08-11 16:12] LABS: Adenovirus Not Detected (Not Detected); Human Metapneumovirus Not Detected (Not Detected); Human Parainflu Virus 1 Not Detected (Not Detected); Human Parainflu Virus 2 Not Detected (Not Detected); Human Parainflu Virus 3 Not Detected (Not Detected); Human Rsv A Not Detected (Not Detected); Influenza A Not Detected (Not Detected); Influenza B Not Detected (Not Detected); Rhinovirus/Enterovirus Not Detected (Not Detected)
== END 2020-08-08 22:21 | disposition short-term general hospital (02) | DRG 872 ==
LOC: ER 21:30 → CSU 22:48
PROVIDERS: Admitting Provider Internal Medicine; Emergency Provider Emergency Medicine; PCP Nurse Practitioner Family; Visit Provider Internal Medicine
DX: A41.9 Sepsis, unspecified organism (principal); N17.9 Acute kidney failure, unspecified; E87.1 Hypo-osmolality and hyponatremia; D89.813 Graft-versus-host disease, unspecified; Z94.84 Stem cells transplant status; D75.1 Secondary polycythemia; E86.0 Dehydration; R74.01 Elevation of levels of liver transaminase levels; K21.9 Gastro-esophageal reflux disease without esophagitis; R51.9 Headache, unspecified; Z86.2 Personal history of diseases of the blood and blood-forming organs and certain disorders involving the immune mechanism; Z90.81 Acquired absence of spleen; Z86.19 Personal history of other infectious and parasitic diseases; Z91.81 History of falling; Z79.82 Long term (current) use of aspirin; Z79.899 Other long term (current) drug therapy
CPT/HCPCS: 36415; 70450; 71045; 71250; 74176; 80053; 81001; 83605; 84145; 85007; 85025; 87040; 87086; 87426; 87641; 93005; 96361; 96365; 96372; 99285; G0378; J0696; J1644; J2543; J3370; J7030; Q9967

== ENCOUNTER 2020-08-14 06:11 | Outpatient (CLI) | payer OTHER, MEDICARE, SELFPAY ==
[2020-08-14 09:10] LABS: Basophils # 0.1 10^3/uL (0.0-0.1); Basophils % 0.6 %; Eosinophils # 0.1 10^3/uL (0.0-0.8); Eosinophils % 0.6 %; Hematocrit 44.2 % (42.0-52.0); Hemoglobin 15.9 g/dL (11.7-16.6); Lymphocytes # 4.4 10^3/uL (0.8-4.8); Lymphocytes % 43.5 %; Mean Corpuscular Hemoglobin 34.3 pg (28.0-34.0); Mean Corpuscular Volume 95.3 fL (80-94); Mean Platelet Volume 10.3 fL (7.4-10.4); Monocytes # 0.9 10^3/uL (0.2-0.9); Monocytes % 9.1 %; Neutrophils # 4.43 10^3/uL (1.8-7.7); Neutrophils % 43.6 %; Nucleated Red Blood Cells # 0.2 /100WBC; Platelet Count 346 10^3/cmm (130-400); Red Blood Count 4.64 10^6/uL (4.1-5.3); Red Cell Distribution Width 17.7 % (12.1-15.1); White Blood Count 10.1 10^3/uL (4.0-10.0)
--- NOTE | 2020-08-15 17:29 | ONC FU_ITS ---
Dr. Corral follow up note Patient: Dennis Singh Unit #: [id number]: [id number] Dicatated By: Ray Corral M.D.Date of Visit:Aug 14, 2020 Onc Med Follow-up/Prog Note History of Present Illness: Mr. Dennis Singh is a 55-year-old gentleman who was admitted to the hospital on 11/17/16 with episode of syncopal attacks. He was found to have severe anemia with hemoglobin of 4.9 and hematocrit of 14.3, and his white blood count was also low at 2.5 with a neutrophil of 24%, bands at 12%, and absolute Neutrophil Count about 900. Platelet count was 85,000. He was given 4 units of packed RBC during hospitalization and Was diagnosed with myelodysplastic syndrome with germline [id number] mutation, treated with azacitidine on 03/31/2017 and 05/06/2017. 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 And on prophylactic antimicrobial with acyclovir, Bactrim and now on AmBisome until transaminases improves then it will be switched to oral antifungal patient has return appointment to BMT . Clinic at [facility] amBisome was discontinued on 08/25/2018, Follow-up labs done in his PMDs office on August 02, 2020 showed polycythemia, hemoglobin, 19.7 g hematocrit 57.3%, patient was sent to hematology clinic for phlebotomy because of severe headaches, patient underwent phlebotomy with 250 cc blood drawn replaced by 250 cc normal saline and patient was advised to take aspirin and maintain good hydration but patient was admitted to hospital with high-grade fever and persistent headaches, during hospitalization, he was treated with broad-spectrum antibiotic, as per patient his blood count shows progressive thrombocytopenia, he was transferred to [facility] in [place] where he underwent testing for tick fever and as per patient it was positive and treated with appropriate antibiotic with that his fevers hold and blood counts improved, patient was discharged home Came for follow-up, denies any specific complaints, no more fever chills, no nausea or vomiting, no diarrhea constipation, no more headaches, no blurred vision or double vision, no jaundice, no abdominal pain, no shortness of breath or palpitation, overall feeling well since discharge from [facility] Medications: Acyclovir 1 (400 mg) Tablet Oral t.i.d., Aspirin (325 mg) Tablet Oral daily, Bactrim 1 Tablet Oral b.i.d., Calcium 1 Capsule (of 600 mg) Oral b.i.d., Cetirizine HCl 1 Tablet (of 10 mg) Oral daily, Cholecalciferol 1 (2000 Units) Tablet Oral daily, Jakafi 1 Tablet (of 10 mg) Oral b.i.d., Mucinex 1 Tablet (of 600 mg) Tablet SR 12 HR Oral t.i.d., Noxafil 3 Tablet (of 100 mg) Tablet, enteric coated Oral daily, predniSONE 1 (10 mg) Tablet Oral daily, Tacrolimus 1 Tablet (of 0.5 mg) Capsule Oral daily, Ursodiol 1 Tablet Oral b.i.d. Allergies: Latex Review of Systems: Review of Systems is not available for this patient. Vital Signs: Performed on Aug 14, 2020 10:24 Height - 61.50 in Weight - 221.8 lbs (LOW) BSA - 1.99 sq.m BMI - 41.23 (HIGH) Temperature - 98.1 F (LOW) Pulse - 91 /min Respiration - 18 /min BP - 146/95 mm(hg) (HIGH) O2 Sat - 95 % (LOW) Pain - 0 Fatigue - 5 Performance Status: 0 - Fully active, able to carry on all predisease activities without restrictions. (ECOG) Physical Examination: ENMT - No mouth sores, no thrush, no jaundice, Respiratory - Lungs are clear to auscultation, Cardiovascular - Regular rate and rhythm of heart, Abdomen - Soft, bowel sounds present, Extremities - 1+ edema bilaterally. Lab/Imaging: Test performed on Aug 02, 2020 11:02 WBC 6.1 10^3/uL RBC 5.59 10^6/uL HGB 19.7 g/dL HCT 57.3 % MCV 102.5 fl MCH 35.2 pg MCHC 34.4 g/dL RDW 16.6 % Platelet Count 291 10^3/uL MPV 10.2 fl Neutrophils 4.8 10^3/uL Lymphocytes 0.7 10^3/uL Monocytes 0.5 10^3/uL Eosinophils 0.0 10^3/uL Basophils 0.1 10^3/uL Neutrophil % 28 % Lymphocyte % 12 % Monocyte % 8 % Eosinophil % 0 % Basophils % 1 % Impression: Pancytopenia due to MDS with IPSS score 0.5 ( no excess blast , no cytogenetic abnormality) intermediate 1 risk with germline DDX41 mutation s/p azacitidine on 03/31/2017 and 05/06/2017. 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 Donor and recipient both A+, CMV negative Post transplant period complicated by acute sjukq-aspbla-ezjv disease, stage III, grade IIIc, diagnosed on 06/26/2017 when his bilirubin was 6.8 And chronic skin rash. Now on post transplant treatment as per protocol. 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 involving subcutaneous tissue/fascia in the flanks copper level 107, Testosterone level 508.94 Polycythemia diagnosed on August 02, 2020, Started on phlebotomy with 250 cc/replacement with 250 cc normal saline on August 06, 2020X1, subsequently patient was admitted to hospital with high-grade fever, was treated with broad-spectrum antibiotic but during hospitalization his follow-up CBC shows progressive thrombocytopenia for which she was transferred to [facility] where, as per patient he was diagnosed with tick fever and treated with appropriate antibiotics, since then his fever resolved, headaches resolved and his blood counts gone back to normal range. Plan: Discussed with patient regarding his labs white blood count 10.1 hemoglobin 15.9 hematocrit 44.2 platelets 346,000 ANC 4430 Clinically, patient doing well with no new signs symptoms, except mild lower extremity edema since recent hospital admission where he was given a lot of fluids, no more headaches, his follow-up labs shows hemoglobin/hematocrit within normal range, mild thrombocytopenia resolved, now with mild leukocytosis, recovering from recent infection due to tic fever., No further work-up at other observation, he will return to clinic in 1 month, will also get him prescription for Lasix 20 mg daily for 2 days then as needed for lower extremity edema which is probably due to hydration during recent hospitalization.Moreover during his last visit for polycythemia, patient underwent phlebotomy with 250 cc blood drawn x1, at that time, work-up for polycythemia including JAK2 mutation, ARMAND R, erythropoietin level, BCR ABL testing was ordered but due to miscommunication among nursing and household appliance installer it was not done, now his blood counts are in normal range, will monitor if there is a recurrence of polycythemia, will consider work-up Return to clinic in 1 month with CBC Signed By: Ray Corral M.D. <<Signature on File>>
== END 2020-08-14 06:12 | disposition home or self-care (01) ==
PROVIDERS: PCP Nurse Practitioner Family; Visit Provider Internal Medicine Hematology & Oncology
DX: D61.818 Other pancytopenia (principal); D46.9 Myelodysplastic syndrome, unspecified; D75.1 Secondary polycythemia; R60.0 Localized edema; Z79.899 Other long term (current) drug therapy
CPT/HCPCS: 36415; 85025; 99214

== ENCOUNTER 2020-09-13 11:58 | Outpatient (CLI) | payer OTHER, MEDICARE, SELFPAY ==
[2020-09-13 12:26] LABS: Basophils % 0.5 %; Eosinophils % 0.4 %; Hematocrit 46.6 % (42.0-52.0); Hemoglobin 15.8 g/dL (11.7-16.6); Lymphocytes # 3.2 10^3/uL (0.8-4.8); Lymphocytes % 38.2 %; Mean Corpuscular HGB Conc 33.9 g/dL (30.0-36.0); Mean Corpuscular Hemoglobin 34.4 pg (28.0-34.0); Mean Corpuscular Volume 101.5 fL (80-94); Mean Platelet Volume 9.1 fL (7.4-10.4); Monocytes # 0.9 10^3/uL (0.2-0.9); Monocytes % 10.3 %; Neutrophils # 4.19 10^3/uL (1.8-7.7); Neutrophils % 50.2 %; Nucleated Red Blood Cells % 0 %; Platelet Count 456 10^3/cmm (130-400); Red Blood Count 4.59 10^6/uL (4.1-5.3); Red Cell Distribution Width 15.6 % (12.1-15.1); White Blood Count 8.3 10^3/uL (4.0-10.0)
--- NOTE | 2020-09-13 13:45 | ONC FU_ITS ---
Dr. Corral follow up note Patient: Dennis Singh Unit #: [id number]: 1965 Dicatated By: Ray Corral M.D.Date of Visit:Sep 13, 2020 Onc Med Follow-up/Prog Note History of Present Illness: Mr. Dennis Singh is a 55-year-old gentleman who was admitted to the hospital on 11/17/16 with episode of syncopal attacks. He was found to have severe anemia with hemoglobin of 4.9 and hematocrit of 14.3, and his white blood count was also low at 2.5 with a neutrophil of 24%, bands at 12%, and absolute Neutrophil Count about 900. Platelet count was 85,000. He was given 4 units of packed RBC during hospitalization and Was diagnosed with myelodysplastic syndrome with germline [id number] mutation, treated with azacitidine on 03/31/2017 and 05/06/2017. 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 And on prophylactic antimicrobial with acyclovir, Bactrim and now on AmBisome until transaminases improves then it will be switched to oral antifungal patient has return appointment to BMT . Clinic at [facility] amBisome was discontinued on 08/25/2018, Follow-up labs done in his [facility] office on August 02, 2020 showed polycythemia, hemoglobin, 19.7 g hematocrit 57.3%, patient was sent to hematology clinic for phlebotomy because of severe headaches, patient underwent phlebotomy with 250 cc blood drawn replaced by 250 cc normal saline and patient was advised to take aspirin and maintain good hydration but patient was admitted to hospital with high-grade fever and persistent headaches, during hospitalization, he was treated with broad-spectrum antibiotic, as per patient his blood count shows progressive thrombocytopenia, he was transferred to [facility] where he underwent testing for tick fever and as per patient it was positive and treated with appropriate antibiotic with that his fevers hold and blood counts improved, patient was discharged home Came for follow-up, denies any specific complaints, no fever chills, no nausea or vomiting, no diarrhea or constipation, no melena or hematochezia, no hemoptysis or hematemesis, no headaches blurred vision double vision but complaining of dry eyes for which he is using artificial eyedrops Medications: Acyclovir 1 (400 mg) Tablet Oral t.i.d., Aspirin (325 mg) Tablet Oral daily, Bactrim 1 Tablet Oral b.i.d., Calcium 1 Capsule (of 600 mg) Oral b.i.d., Cetirizine HCl 1 Tablet (of 10 mg) Oral daily, Cholecalciferol 1 (2000 Units) Tablet Oral daily, Jakafi 1 Tablet (of 10 mg) Oral b.i.d., Mucinex 1 Tablet (of 600 mg) Tablet SR 12 HR Oral t.i.d., Noxafil 3 Tablet (of 100 mg) Tablet, enteric coated Oral daily, predniSONE 1 (10 mg) Tablet Oral daily, Tacrolimus 1 Tablet (of 0.5 mg) Capsule Oral daily, Ursodiol 1 Tablet Oral b.i.d. Allergies: Latex Review of Systems: Review of Systems is not available for this patient. Vital Signs: Performed on Sep 13, 2020 13:21 Height - 61.50 in Weight - 218.2 lbs (LOW) BSA - 1.97 sq.m BMI - 40.56 (HIGH) Temperature - 98.4 F Pulse - 90 /min Respiration - 18 /min BP - 160/89 mm(hg) (HIGH) O2 Sat - 93 % (LOW) Pain - 0 Performance Status: 0 - Fully active, able to carry on all predisease activities without restrictions. (ECOG) Physical Examination: ENMT - No mouth sores, no thrush, no jaundice, Respiratory - Lungs are clear to auscultation, Cardiovascular - Regular rate and rhythm of heart, Abdomen - Soft, bowel sounds present, Extremities - No visible edema or rash. Lab/Imaging: Test performed on Aug 02, 2020 11:02 WBC 6.1 10^3/uL RBC 5.59 10^6/uL HGB 19.7 g/dL HCT 57.3 % MCV 102.5 fl MCH 35.2 pg MCHC 34.4 g/dL RDW 16.6 % Platelet Count 291 10^3/uL MPV 10.2 fl Neutrophils 4.8 10^3/uL Lymphocytes 0.7 10^3/uL Monocytes 0.5 10^3/uL Eosinophils 0.0 10^3/uL Basophils 0.1 10^3/uL Neutrophil % 28 % Lymphocyte % 12 % Monocyte % 8 % Eosinophil % 0 % Basophils % 1 % Impression: Pancytopenia due to MDS with IPSS score 0.5 ( no excess blast , no cytogenetic abnormality) intermediate 1 risk with germline DDX41 mutation s/p azacitidine on 03/31/2017 and 05/06/2017. 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 Donor and recipient both A+, CMV negative Post transplant period complicated by acute ahzua-ociixg-omoo disease, stage III, grade IIIc, diagnosed on 06/26/2017 when his bilirubin was 6.8 And chronic skin rash. Now on post transplant treatment as per protocol. 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 involving subcutaneous tissue/fascia in the flanks copper level 107, Testosterone level 508.94 Polycythemia diagnosed on August 02, 2020, Started on phlebotomy with 250 cc/replacement with 250 cc normal saline on August 06, 2020X1, subsequently patient was admitted to hospital with high-grade fever, was treated with broad-spectrum antibiotic but during hospitalization his follow-up CBC shows progressive thrombocytopenia for which she was transferred to [facility] where, as per patient he was diagnosed with tick fever and treated with appropriate antibiotics, since then his fever resolved, headaches resolved and his blood counts gone back to normal range. Plan: Discussed with patient regarding his labs white blood count 8.3 hemoglobin 15.8, hematocrit 46.6 platelets 456,000 Clinically, patient doing well with no new signs symptoms, his follow-up CBC shows hemoglobin/hematocrit in normal range. Patient was advised to maintain hydration and we will see him on as-needed basis as patient has follow-up BMT clinic at [place] in October 2020. Patient was also advised to avoid hot weather/dry hot air as it will cause more dryness of eyes and And the use artificial eyedrops as recommended follow with his ophthalmology Signed By: Ray Corral M.D. <<Signature on File>>
[2020-12-10 15:16] LABS: Basophils % 0.5 %; Eosinophils # 0.1 10^3/uL (0.0-0.8); Eosinophils % 0.9 %; Hematocrit 49.9 % (42.0-52.0); Lymphocytes # 3.4 10^3/uL (0.8-4.8); Lymphocytes % 41.6 %; Mean Corpuscular HGB Conc 34.1 g/dL (30.0-36.0); Mean Corpuscular Hemoglobin 34.1 pg (28.0-34.0); Mean Corpuscular Volume 100.2 fl (80-94); Mean Platelet Volume 9.4 fL (7.4-10.4); Monocytes # 1.1 10^3/uL (0.2-0.9); Monocytes % 13.9 %; Neutrophils # 3.51 10^3/uL (1.8-7.7); Neutrophils % 42.6 %; Nucleated Red Blood Cells % 0 %; Platelet Count 470 10^3/cmm (130-400); Red Blood Count 4.98 10^6/uL (4.1-5.3); Red Cell Distribution Width 14.5 % (12.1-15.1); White Blood Count 8.2 10^3/uL (4.0-10.0)
== END 2020-09-13 11:59 | disposition home or self-care (01) ==
LOC: ONCMED 12:00
PROVIDERS: PCP Nurse Practitioner Family; Visit Provider Internal Medicine Hematology & Oncology
DX: D61.818 Other pancytopenia (principal); D46.9 Myelodysplastic syndrome, unspecified; D75.1 Secondary polycythemia; Z79.899 Other long term (current) drug therapy
CPT/HCPCS: 36415; 85025; 99214

== ENCOUNTER 2020-12-10 12:00 | Outpatient (CLI) | payer OTHER, MEDICARE, SELFPAY | END 2020-12-10 12:01 | disposition home or self-care (01) | LOC: ONCMED 12-11 14:51 | PROVIDERS: PCP Nurse Practitioner Family; Visit Provider Internal Medicine Medical Oncology | DX: D46.9 Myelodysplastic syndrome, unspecified (principal); D53.9 Nutritional anemia, unspecified | CPT/HCPCS: 36415; 85025 ==

== ENCOUNTER 2021-03-05 08:50 | Outpatient (CLI) | payer OTHER, SELFPAY ==
[2021-03-05 10:52] LABS: Basophils # 0.1 10^3/uL (0.0-0.1); Basophils % 0.8 %; Eosinophils # 0.1 10^3/uL (0.0-0.8); Eosinophils % 0.9 %; Hematocrit 55.9 % (42.0-52.0); Hemoglobin 18.6 g/dL (11.7-16.6); Lymphocytes # 2.1 10^3/uL (0.8-4.8); Lymphocytes % 27.5 %; Mean Corpuscular HGB Conc 33.3 g/dL (30.0-36.0); Mean Corpuscular Hemoglobin 33.4 pg (28.0-34.0); Mean Corpuscular Volume 100.4 fl (80-94); Monocytes % 12.4 %; Nucleated Red Blood Cells % 0 %; Platelet Count 410 10^3/cmm (130-400); Red Blood Count 5.57 10^6/uL (4.1-5.3); Red Cell Distribution Width 14.2 % (12.1-15.1); White Blood Count 7.8 10^3/uL (4.0-10.0)
[2021-03-05 11:45] LABS: Alanine Aminotransferase 32 U/L (0-41); Albumin Level 4.3 g/dL (3.5-5.2); Alkaline Phosphatase 51 IU/L (40-130); Aspartate Amino Transferase 35 U/L (0-40); Blood Urea Nitrogen 17 mg/dL (6-20); Calcium 9.3 mg/dL (8.5-10.5); Carbon Dioxide 22 mmol/L (22-29); Chloride 102 mmol/L (98-107); Globulin 2.9 g/dL (1.3-4.6); Glomerular Filtration Rate 52.4 mL/min (90-130); Glucose 99 mg/dL (65-115); Osmolality Calculated 284 mOsm/kg (285-295); Sodium 136 mmol/L (136-145); Total Bilirubin 0.4 mg/dL (0.15-1.2); Total Protein 7.2 g/dL (6.6-8.7)
[2021-03-05 11:48] LABS: Anion Gap 16.7 (5-19); Potassium 4.7 mmol/L (3.5-5.1)
[2021-03-05 12:13] LABS: Ferritin 2126 ng/mL (30-400)
[2021-03-06 16:17] LABS: Erythropoietin 40.4 mIU/mL (2.6-18.5)
== END 2021-03-05 08:51 | disposition home or self-care (01) ==
LOC: ONCMED 08:53
PROVIDERS: Internal Medicine Medical Oncology; PCP Nurse Practitioner Family; Visit Provider Internal Medicine Hematology & Oncology
DX: D46.9 Myelodysplastic syndrome, unspecified (principal)
CPT/HCPCS: 36415; 80053; 82668; 82728; 85025

== ENCOUNTER 2021-07-22 10:39 | Oncology outpatient (recurring) (ONCR) | payer OTHER, SELFPAY ==
[2021-07-22 11:06] LABS: Basophils # 0.1 10^3/uL (0.0-0.1); Eosinophils # 0.1 10^3/uL (0.0-0.8); Eosinophils % 2.1 %; Hematocrit 47.8 % (42.0-52.0); Hemoglobin 16.5 g/dL (11.7-16.6); Lymphocytes # 2.3 10^3/uL (0.8-4.8); Lymphocytes % 37.8 %; Mean Corpuscular HGB Conc 34.5 g/dL (30.0-36.0); Mean Corpuscular Volume 98.4 fl (80-94); Mean Platelet Volume 9.3 fL (7.4-10.4); Monocytes # 0.9 10^3/uL (0.2-0.9); Monocytes % 14.8 %; Neutrophils # 2.68 10^3/uL (1.8-7.7); Nucleated Red Blood Cells % 0 %; Platelet Count 396 10^3/cmm (130-400); Red Blood Count 4.86 10^6/uL (4.1-5.3); Red Cell Distribution Width 14.9 % (12.1-15.1); White Blood Count 6.1 10^3/uL (4.0-10.0)
[2021-07-22 11:42] LABS: Alanine Aminotransferase 32 U/L (0-41); Albumin Level 4.2 g/dL (3.5-5.2); Alkaline Phosphatase 45 IU/L (40-130); Aspartate Amino Transferase 46 U/L (0-40); Blood Urea Nitrogen 19 mg/dL (6-20); Calcium 9.5 mg/dL (8.5-10.5); Carbon Dioxide 24 mmol/L (22-29); Chloride 106 mmol/L (98-107); Globulin 2.6 g/dL (1.3-4.6); Glomerular Filtration Rate 62.6 mL/min (90-130); Glucose 114 mg/dL (65-115); Osmolality Calculated 295 mOsm/kg (285-295); Sodium 141 mmol/L (136-145); Total Bilirubin 0.5 mg/dL (0.15-1.2); Total Protein 6.8 g/dL (6.6-8.7)
[2021-07-22 11:44] LABS: Anion Gap 14.9 (5-19); Lactate Dehydrogenase 294 U/L (135-225); Potassium 3.9 mmol/L (3.5-5.1)
[2021-07-23 15:07] LABS: Erythropoietin 65.9 mIU/mL (2.6-18.5)
[2021-07-28 17:47] LABS: CMV DNA By PCR NOT DETECTED; CMV DNA, QN PCR NOT DETECTED Log IU/mL; SOURCE WHOLE BLOOD
== END 2021-08-15 23:59 | disposition home or self-care (01) ==
PROVIDERS: PCP Nurse Practitioner Family; Visit Provider Internal Medicine Medical Oncology
DX: D64.9 Anemia, unspecified (principal); Z94.84 Stem cells transplant status
CPT/HCPCS: 36415; 80053; 82668; 83615; 85025; 87496

== ENCOUNTER 2021-10-22 09:03 | Oncology outpatient (recurring) (ONCR) | payer OTHER, SELFPAY ==
[2021-10-22 09:34] LABS: Basophils % 0.4 %; Eosinophils # 0.1 10^3/uL (0.0-0.8); Eosinophils % 0.7 %; Hematocrit 53.9 % (42.0-52.0); Hemoglobin 18.5 g/dL (11.7-16.6); Lymphocytes # 1.7 10^3/uL (0.8-4.8); Lymphocytes % 23.4 %; Mean Corpuscular HGB Conc 34.3 g/dL (30.0-36.0); Mean Corpuscular Hemoglobin 33.9 pg (28.0-34.0); Mean Corpuscular Volume 98.9 fl (80-94); Mean Platelet Volume 8.7 fL (7.4-10.4); Monocytes # 1.1 10^3/uL (0.2-0.9); Monocytes % 15.4 %; Neutrophils # 4.25 10^3/uL (1.8-7.7); Neutrophils % 59.7 %; Nucleated Red Blood Cells % 0 %; Platelet Count 405 10^3/cmm (130-400); Red Blood Count 5.45 10^6/uL (4.1-5.3); Red Cell Distribution Width 15.3 % (12.1-15.1); White Blood Count 7.1 10^3/uL (4.0-10.0)
[2021-10-22 09:53] LABS: Alanine Aminotransferase 37 U/L (0-41); Albumin Level 4.3 g/dL (3.5-5.2); Alkaline Phosphatase 55 U/L (40-130); Anion Gap 14.3 (5-19); Aspartate Amino Transferase 36 U/L (0-40); Blood Urea Nitrogen 16 mg/dL (6-20); Calcium 10.4 mg/dL (8.5-10.5); Carbon Dioxide 29 mmol/L (22-29); Chloride 102 mmol/L (98-107); Glomerular Filtration Rate 44.9 mL/min (90-130); Glucose 109 mg/dL (65-115); Lactate Dehydrogenase 236 U/L (135-225); Osmolality Calculated 294 mOsm/kg (285-295); Potassium 4.3 mmol/L (3.5-5.1); Sodium 141 mmol/L (136-145); Total Bilirubin 0.4 mg/dL (0.15-1.2); Total Protein 7.3 g/dL (6.6-8.7)
[2021-10-23 17:28] LABS: Erythropoietin 27.8 mIU/mL (2.6-18.5)
== END 2021-11-15 23:59 | disposition home or self-care (01) ==
PROVIDERS: PCP Nurse Practitioner Family; Visit Provider Internal Medicine Medical Oncology
DX: Z94.84 Stem cells transplant status (principal); D89.811 Chronic graft-versus-host disease; D46.9 Myelodysplastic syndrome, unspecified
CPT/HCPCS: 36415; 80053; 82668; 83615; 85025

== ENCOUNTER 2022-01-21 09:17 | Oncology outpatient (recurring) (ONCR) | payer MEDICARE, SELFPAY ==
[2022-01-21 09:56] LABS: Basophils % 0.4 %; Eosinophils # 0.1 10^3/uL (0.0-0.8); Eosinophils % 0.9 %; Hematocrit 53.5 % (42.0-52.0); Hemoglobin 18.1 g/dL (11.7-16.6); Lymphocytes # 3.8 10^3/uL (0.8-4.8); Lymphocytes % 47.8 %; Mean Corpuscular HGB Conc 33.8 g/dL (30.0-36.0); Mean Corpuscular Hemoglobin 33.5 pg (28.0-34.0); Mean Corpuscular Volume 98.9 fl (80-94); Mean Platelet Volume 9.3 fL (7.4-10.4); Monocytes # 0.9 10^3/uL (0.2-0.9); Neutrophils # 3.19 10^3/uL (1.8-7.7); Neutrophils % 39.7 %; Nucleated Red Blood Cells % 0 %; Platelet Count 369 10^3/cmm (130-400); Red Blood Count 5.41 10^6/uL (4.1-5.3); Red Cell Distribution Width 15.9 % (12.1-15.1)
[2022-01-21 10:21] LABS: Alanine Aminotransferase 28 U/L (0-41); Alkaline Phosphatase 48 U/L (40-130); Anion Gap 15.5 (5-19); Aspartate Amino Transferase 29 U/L (0-40); Blood Urea Nitrogen 19 mg/dL (6-20); Calcium 10.1 mg/dL (8.5-10.5); Carbon Dioxide 24 mmol/L (22-29); Chloride 102 mmol/L (98-107); Globulin 3.5 g/dL (1.3-4.6); Glomerular Filtration Rate 48.2 mL/min (90-130); Glucose 105 mg/dL (65-115); Lactate Dehydrogenase 248 U/L (135-225); Osmolality Calculated 287 mOsm/kg (285-295); Potassium 4.5 mmol/L (3.5-5.1); Sodium 137 mmol/L (136-145); Total Bilirubin 0.5 mg/dL (0.15-1.2); Total Protein 7.5 g/dL (6.6-8.7)
== END 2022-02-15 23:59 | disposition home or self-care (01) ==
PROVIDERS: PCP Nurse Practitioner Family; Visit Provider Internal Medicine Medical Oncology
DX: Z94.84 Stem cells transplant status (principal); D89.811 Chronic graft-versus-host disease; D46.9 Myelodysplastic syndrome, unspecified
CPT/HCPCS: 36415; 80053; 82668; 83615; 85025

== ENCOUNTER 2022-06-16 09:10 | Oncology outpatient (recurring) (ONCR) | payer OTHER, SELFPAY ==
[2022-06-16 09:31] LABS: Basophils # 0.1 10^3/uL (0.0-0.1); Basophils % 0.7 %; Eosinophils # 0.1 10^3/uL (0.0-0.8); Eosinophils % 1.1 %; Hematocrit 51.4 % (42.0-52.0); Hemoglobin 17.9 g/dL (11.7-16.6); Lymphocytes # 3.4 10^3/uL (0.8-4.8); Lymphocytes % 41.1 %; Mean Corpuscular HGB Conc 34.8 g/dL (30.0-36.0); Mean Corpuscular Hemoglobin 33.8 pg (28.0-34.0); Mean Corpuscular Volume 97.2 fl (80-94); Mean Platelet Volume 9.1 fL (7.4-10.4); Monocytes % 12.1 %; Neutrophils # 3.72 10^3/uL (1.8-7.7); Neutrophils % 44.5 %; Nucleated Red Blood Cells % 0 %; Platelet Count 442 10^3/cmm (130-400); Red Blood Count 5.29 10^6/uL (4.1-5.3); White Blood Count 8.4 10^3/uL (4.0-10.0)
[2022-06-16 09:50] LABS: Alanine Aminotransferase 28 U/L (0-41); Albumin Level 4.2 g/dL (3.5-5.2); Alkaline Phosphatase 45 U/L (40-130); Anion Gap 14.8 (5-19); Aspartate Amino Transferase 33 U/L (0-40); Blood Urea Nitrogen 13 mg/dL (6-20); Calcium 9.7 mg/dL (8.5-10.5); Carbon Dioxide 25 mmol/L (22-29); Chloride 102 mmol/L (98-107); Glucose 128 mg/dL (65-115); Immunoglobulin IGA 93 mg/dL (70-400); Immunoglobulin IGG 888 mg/dL (700-1600); Immunoglobulin IGM 57 mg/dL (40-230); Lactate Dehydrogenase 222 U/L (135-225); Osmolality Calculated 288 mOsm/kg (285-295); Potassium 3.8 mmol/L (3.5-5.1); Sodium 138 mmol/L (136-145); Total Bilirubin 0.3 mg/dL (0.15-1.2); Total Protein 7.2 g/dL (6.6-8.7)
[2022-06-16 12:19] LABS: Ferritin 1357 ng/mL (30-400)
[2022-06-17 15:10] LABS: Erythropoietin 44.2 mIU/mL (2.6-18.5)
== END 2022-07-16 23:59 | disposition home or self-care (01) ==
LOC: ONCMED 09:11
PROVIDERS: PCP Nurse Practitioner Family; Visit Provider Internal Medicine Medical Oncology
DX: D46.9 Myelodysplastic syndrome, unspecified (principal)
CPT/HCPCS: 36415; 80053; 82668; 82728; 82784; 83615; 85025

== ENCOUNTER 2022-12-22 08:46 | Outpatient (CLI) | payer OTHER, SELFPAY ==
[2022-12-22 09:22] LABS: Basophils % 0.4 %; Eosinophils % 0.5 %; Hematocrit 52.8 % (37-53); Lymphocytes # 2.7 10^3/uL (0.8-4.8); Lymphocytes % 32.8 %; Mean Corpuscular HGB Conc 34.8 g/dL (30-55); Mean Corpuscular Hemoglobin 33.8 pg (27-33); Mean Corpuscular Volume 96.9 fl (82-101); Mean Platelet Volume 8.9 fL (7.4-10.4); Monocytes % 11.5 %; Neutrophils # 4.52 10^3/uL (1.8-7.7); Neutrophils % 54.3 %; Nucleated Red Blood Cells % 0 %; Platelet Count 429 10^3/cmm (157-399); Red Blood Count 5.45 10^6/uL (3.85-5.65); Red Cell Distribution Width 15.1 % (12.1-15.1); White Blood Count 8.32 10^3/uL (3.29-11.43)
[2022-12-22 09:42] LABS: Alanine Aminotransferase 54 U/L (0-41); Albumin Level 4.7 g/dL (3.5-5.2); Alkaline Phosphatase 49 U/L (40-130); Anion Gap 14.4 (5-19); Aspartate Amino Transferase 58 U/L (0-40); Blood Urea Nitrogen 15 mg/dL (6-20); Calcium 9.9 mg/dL (8.5-10.5); Carbon Dioxide 28 mmol/L (22-29); Chloride 103 mmol/L (98-107); Globulin 2.7 g/dL (1.3-4.6); Glomerular Filtration Rate 52.2 mL/min (90-130); Glucose 118 mg/dL (65-115); Lactate Dehydrogenase 356 U/L (135-225); Osmolality Calculated 294 mOsm/kg (285-295); Potassium 4.4 mmol/L (3.5-5.1); Sodium 141 mmol/L (136-145); Total Bilirubin 0.6 mg/dL (0.15-1.2); Total Protein 7.4 g/dL (6.6-8.7)
[2022-12-22 10:18] LABS: Ferritin 1532 ng/mL (30-400)
[2022-12-22 15:44] LABS: Immunoglobulin IGA 85 mg/dL (70-400); Immunoglobulin IGG 952 mg/dL (700-1600); Immunoglobulin IGM 43 mg/dL (40-230)
== END 2022-12-22 08:47 | disposition home or self-care (01) ==
PROVIDERS: PCP Nurse Practitioner Family; Visit Provider Internal Medicine Medical Oncology
DX: D46.9 Myelodysplastic syndrome, unspecified (principal); D89.811 Chronic graft-versus-host disease; R79.89 Other specified abnormal findings of blood chemistry; Z94.84 Stem cells transplant status
CPT/HCPCS: 80053; 82728; 82784; 83615; 85025

== ENCOUNTER 2022-12-23 09:16 | Outpatient (CLI) | payer MEDICARE, SELFPAY ==
--- NOTE | 2022-12-23 09:47 | XR_ITS ---
WS: [id number] Right knee, 3 views, 12/23/2022 Clinical Data: Bilateral knee swelling Comparison: None. Findings: No fractures or dislocations are seen. There is medial joint compartment narrowing with spurring of t he medial tibial plateau and medial femoral condyle. The posterior right patella shows a small whip operator ior inferior spur. The soft tissues are unremarkable. There is a small osteochondroma of the posterior proximal right tibia. Impression: Mild osteoarthritis of the right knee. Kellgren-Solitario Classification: grade 2 (minimal): definite osteophytes and possible joint space na rrowing
--- NOTE | 2022-12-23 09:47 | XR_ITS ---
WS: [id number] Left knee, 3 views, 12/23/2022 Clinical Data: Bilateral knee swelling Comparison: None. Findings: No fractures or dislocations are seen. There is medial joint compartment narrowing with spurring of t he medial tibial plateau and lateral and medial femoral condyles. The left patella is normal. The sof t tissues are not remarkable. Impression: Mild osteoarthritis of the left knee. Kellgren-Solitario Classification: grade 2 (minimal): definite osteophytes and possible joint space na rrowing
== END 2022-12-23 09:17 | disposition home or self-care (01) ==
LOC: RAD 09:17
PROVIDERS: PCP Nurse Practitioner Family; Visit Provider Nurse Practitioner Family
DX: D16.21 Benign neoplasm of long bones of right lower limb (principal); M17.11 Unilateral primary osteoarthritis, right knee; M25.461 Effusion, right knee; M25.462 Effusion, left knee
CPT/HCPCS: 73562

== ENCOUNTER 2023-07-20 09:58 | Outpatient (CLI) | payer MEDICARE, SELFPAY ==
[2023-07-20 11:02] LABS: Basophils # 0.1 10^3/uL (0.0-0.1); Basophils % 0.7 %; Eosinophils % 0.6 %; Hematocrit 51.4 % (37-53); Lymphocytes # 2.4 10^3/uL (0.8-4.8); Lymphocytes % 34.3 %; Mean Corpuscular HGB Conc 34.2 g/dL (30-55); Mean Corpuscular Hemoglobin 33.1 pg (27-33); Mean Corpuscular Volume 96.6 fl (82-101); Mean Platelet Volume 9.4 fL (7.4-10.4); Monocytes # 0.6 10^3/uL (0.2-0.9); Monocytes % 8.4 %; Neutrophils # 3.94 10^3/uL (1.8-7.7); Neutrophils % 55.3 %; Nucleated Red Blood Cells % 0 %; Platelet Count 440 10^3/cmm (157-399); Red Blood Count 5.32 10^6/uL (3.85-5.65); Red Cell Distribution Width 15.2 % (12.1-15.1); White Blood Count 7.12 10^3/uL (3.29-11.43)
[2023-07-20 11:21] LABS: Alanine Aminotransferase 68 U/L (0-41); Albumin Level 4.2 g/dL (3.5-5.2); Alkaline Phosphatase 62 U/L (40-130); Anion Gap 15.7 (5-19); Aspartate Amino Transferase 67 U/L (0-40); Blood Urea Nitrogen 13 mg/dL (6-20); Calcium 9.3 mg/dL (8.5-10.5); Carbon Dioxide 23 mmol/L (22-29); Chloride 103 mmol/L (98-107); Glomerular Filtration Rate 56.7 mL/min (90-130); Glucose 169 mg/dL (65-115); Lactate Dehydrogenase 222 U/L (135-225); Osmolality Calculated 290 mOsm/kg (285-295); Potassium 3.7 mmol/L (3.5-5.1); Sodium 138 mmol/L (136-145); Total Bilirubin 0.3 mg/dL (0.15-1.2); Total Protein 7.2 g/dL (6.6-8.7)
[2023-07-20 11:36] LABS: Ferritin 1477 ng/mL (30-400)
[2023-07-20 12:00] LABS: Immunoglobulin IGA 82 mg/dL (70-400); Immunoglobulin IGG 765 mg/dL (700-1600); Immunoglobulin IGM 30 mg/dL (40-230)
[2023-07-24 11:39] LABS: Erythropoietin 36.3 mIU/mL (2.6-18.5)
== END 2023-07-20 09:59 | disposition home or self-care (01) ==
LOC: LAB 10:00
PROVIDERS: PCP Nurse Practitioner Family; Visit Provider Internal Medicine Medical Oncology
DX: D46.9 Myelodysplastic syndrome, unspecified (principal); Z94.84 Stem cells transplant status; D89.811 Chronic graft-versus-host disease; D58.2 Other hemoglobinopathies; Z15.89 Genetic susceptibility to other disease
CPT/HCPCS: 36415; 80053; 82668; 82728; 82784; 83615; 85025

== ENCOUNTER 2024-08-31 11:02 | Outpatient (CLI) | payer MEDICARE, SELFPAY ==
[2024-08-31 12:02] LABS: Hematocrit 52.7 % (37-53); Hemoglobin 18.20 g/dL (11.27-16.99); Mean Corpuscular HGB Conc 34.5 g/dL (30-55); Mean Corpuscular Hemoglobin 32.7 pg (27-33); Mean Corpuscular Volume 94.8 fl (82-101); Nucleated Red Blood Cells % 0 %; Platelet Count 424 10^3/cmm (157-399); Red Blood Count 5.56 10^6/uL (3.85-5.65); White Blood Count 7.47 10^3/uL (3.29-11.43)
[2024-08-31 12:26] LABS: Alanine Aminotransferase 41 U/L (0-41); Albumin Level 4.2 g/dL (3.5-5.2); Alkaline Phosphatase 45 U/L (40-130); Anion Gap 17.1 (5-19); Aspartate Amino Transferase 37 U/L (0-40); Blood Urea Nitrogen 16 mg/dL (6-20); Calcium 10.4 mg/dL (8.5-10.5); Carbon Dioxide 25 mmol/L (22-29); Chloride 101 mmol/L (98-107); Globulin 3.3 g/dL (1.3-4.6); Glucose 98 mg/dL (65-115); Osmolality Calculated 289 mOsm/kg (285-295); Potassium 4.1 mmol/L (3.5-5.1); Sodium 139 mmol/L (136-145); Total Protein 7.5 g/dL (6.6-8.7)
[2024-09-04 14:55] LABS: CMV DNA By PCR Not Detected (Not Detected)
== END 2024-08-31 11:03 | disposition home or self-care (01) ==
PROVIDERS: PCP Nurse Practitioner Family; Visit Provider Internal Medicine Medical Oncology
DX: Z01.89 Encounter for other specified special examinations (principal)
CPT/HCPCS: 36415; 80053; 82668; 82784; 83615; 85025; 87496

== ENCOUNTER 2025-01-18 12:52 | Outpatient (CLI) | payer MEDICARE, SELFPAY ==
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
== END 2025-01-18 12:53 | disposition home or self-care (01) ==
PROVIDERS: PCP Nurse Practitioner Family; Visit Provider Nurse Practitioner Family
DX: M25.511 Pain in right shoulder (principal)
CPT/HCPCS: 73000; 73030

== ENCOUNTER 2025-02-15 10:25 | Outpatient (CLI) | payer MEDICARE, SELFPAY ==
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
== END 2025-02-15 10:26 | disposition home or self-care (01) ==
LOC: RAD 10:27
PROVIDERS: PCP Nurse Practitioner Family; Visit Provider Nurse Practitioner Family
DX: S83.231A Complex tear of medial meniscus, current injury, right knee, initial encounter (principal); X58.XXXA Exposure to other specified factors, initial encounter; V89.2XXA Person injured in unspecified motor-vehicle accident, traffic, initial encounter; Y92.9 Unspecified place or not applicable; M25.761 Osteophyte, right knee; M71.21 Synovial cyst of popliteal space [Baker], right knee; M94.261 Chondromalacia, right knee
CPT/HCPCS: 73721